=== PATIENT | male | born 1960 | race African-American/Black ===

== ENCOUNTER 2019-12-02 19:46 | Inpatient (IN) | payer OTHER ==
[2019-12-02] MEDS ORDERED: NORMAL SALINE 1000 ML 1,000 ML IV ONE ×2 (19:59)
[2019-12-02] MEDS ORDERED: GENTAMICIN SULFATE 0.3% OPH SOLN 5 ML OU ONE (20:03)
--- NOTE | 2019-12-02 20:09 | ER Document Report ---
Entered by MICHELLE FERNANDEZ SCRIBE 12/02/191999 Acting as scribe for:PHILLIP SANDERS, DO ED General - General Mode of Arrival: Medic <KATIE HUERTA - Last Filed: 12/03/19 02:23> - General Information source: Patient <PHILLIP SANDERS - Last Filed: 12/03/19 14:24> - General Stated Complaint: POSSIBLE STROKE Time Seen by Provider: 12/02/19 19:56 Notes: This 59-year-old Left handed male presents to the emergency department via EMS with stroke-like symptoms. EMS reports that patient lives alone and was found by family laying in the prone position with bowel and urinary incontinence. Last known well was when family saw patient 2 days ago. EMS noted left-sided weakness, slurred speech and febrile with a temperature of 100.9. Patient reports that he fell two days ago and denies having any pain. Patient says that it is "hard to see". (PHILLIP SANDERS) - Related Data Allergies/Adverse Reactions: No Known Allergies Allergy (Verified 12/02/19 19:59) Past Medical History - General Information source: Patient Cannot obtain history due to: Unstable vital signs - Social History Smoking Status: Unknown if Ever Smoked Family History: Reviewed & Not Pertinent - Past Medical History Cardiac Medical History: Reports: Hx Hypertension Pulmonary Medical History: Reports: Hx Asthma - Immunizations Hx Diphtheria, Pertussis, Tetanus Vaccination: No <PHILLIP SANDERS - Last Filed: 12/03/19 14:24> Review of Systems - Review of Systems -: Yes ROS unobtainable due to patient's medical condition <PHILLIP SANDERS - Last Filed: 12/03/19 14:24> Physical Exam <KATIE HUERTA - Last Filed: 12/03/19 02:23> - General General appearance: Other - Pt is quiet, slow to respond. Appears unwell. - HEENT Head: Normocephalic, Atraumatic Eyes: Other - mucopurulent discharge from both eyes. EOMI Conjunctiva: Purulent discharge - Respiratory Respiratory status: No respiratory distress Breath sounds: Normal Chest palpation: Other - left lower chest 1st/ 2nd degree type total body surface < 5 % - Cardiovascular Rhythm: Regular Heart sounds: Normal auscultation - Abdominal Inspection: Normal Distension: No distension Bowel sounds: Normal Tenderness: Tender - Luq small area of redness consistent with laying on floor for 2 days. - Extremities General upper extremity: Nontender, Normal color. No: Edema General lower extremity: Nontender, Normal color. No: Edema, Vilma's sign - Neurological Neuro grossly intact: Yes Cognition: Normal Orientation: AAOx4 Saman Coma Scale Eye Opening: Spontaneous Saman Coma Scale Verbal: Oriented Saman Coma Scale Motor: Obeys Commands Saman Coma Scale Total: 15 Speech: Normal Motor strength normal: LUE, RUE, LLE, RLE Sensory: Normal - Psychological Associated symptoms: Normal mood - Skin Skin Temperature: Warm Skin Moisture: Dry Skin Color: Other - Holguin as noted previously <PHILLIP SANDERS P - Last Filed: 12/03/19 14:24> - Vital signs Vitals: Pulse Ox 97 12/02/19 19:56 - Notes Notes: PHYSICAL EXAMINATION: Physical Exam: General: Well-nourished well-developed 59-year-old man in no acute distress HEENT: NC/AT, pupils equal round and reactive to light, patient is unable to track to the left, unable to give me a accurate identification of my hand on the left side. Lips are dry with some emaciation of the lower lip, an area of blistering noted left chin area clear, oropharynx clear, airway patent Neck: supple, no adenopathy, no masses. Good range of motion Lungs: clear, no wheezing, no rales no rhonchi CVS: Regular rate and rhythm no murmur gallop or rub Abdomen: Soft, active, nontender, no masses, no hepatosplenomegaly Ext: No edema, clubbing or cyanosis. Neuro: Alert and responsive, spontaneous movement right side, no movement on the left, flaccid left lower and left upper extremity. Speech dysarthric able to answer yes and no to some questions, + left-sided neglect, + left field cut, meenakshi ble to cooperate with cerebellar testing. Decreased sensation left side Skin: + Area of superficial burn on the left anterior chest upper abdomen, mild blisters and peeling of skin (KATIE HUERTA) Physical Exam: General: Alert. HEENT: Atraumatic. PERRL. Extraocular movements intact. Oropharynx clear. Lips are dry and macerated. Neck: Supple. Non-tender. Respiratory: No respiratory distress. Clear and equal breath sounds bilaterally. Cardiovascular: Regular rate and rhythm. Abdominal: Normal Inspection. Non-tender. No distension. Normal Bowel Sounds. Back: No gross abnormalities. Extremities: Completely flaccid on LLE and LUQ. Lower extremities: No edema. Neurological: Normal cognition. AAOx4. Normal speech. Psychological: Normal affect. Normal Mood. Skin: Warm. Dry. Normal color. Skin breaks consistent with first and second d egree holguin on LUQ abdomen and lower left costal margin. (PHILLIP SANDERS) Course - Laboratory Result Diagrams: 12/02/19 19:52 12/02/19 19:52 - Diagnostic Test Radiology reviewed: Image reviewed, Reports reviewed - Chest x-ray: + cardiomegaly, no infiltrate CT head: No acute hemorrhage MRI head: Multiple areas of patchy ischemic infarction, right middle cerebral artery watershed distribution between the right MCA and CONE TRUCKER, acute stroke. MRA: Probable occlusion of the right middle cerebral artery at the mid M1 segment. - EKG Interpretation by Sd EKG shows normal: Sinus rhythm - Normal sinus rhythm rate of 76, multiple atrial premature contractions, left atrial abnormality, right bundle branch block, no prior comparative EKG. <KATIE HUERTA - Last Filed: 12/03/19 02:23> - Laboratory Result Diagrams: 12/02/19 19:52 12/02/19 19:52 - Diagnostic Test Radiology reviewed: Image reviewed, Reports reviewed - EKG Interpretation by Sd EKG shows normal: Sinus rhythm Rate: Normal Rhythm: NSR - NSR Nl [place] RBBB Repol Ab no st elevation or depression my interpretation. <PHILLIP SANDERS - Last Filed: 12/03/19 14:24> - Re-evaluation Re-evalutation: 12/02/19 22:53 I have assumed the care of this patient from Dr. Sanders, apparently acute CVA occurring greater than 48 hours prior to arrival to the emergency department NIHSS 11 left-sided weakness and dysarthria. Given the latency of his event patient is not a candidate for TPA. MRI/MRA is being performed will await the findings for disposition. Patient has rhabdomyolysis secondary to being on the floor at home for the past 2 days. 12/03/19 00:09 MRI reveals multiple areas of patchy ischemia, infarct right middle cerebral artery watershed distribution between right MCA and CONE TRUCKER, acute stroke the MRA r evealed probable occlusion of the right middle cerebral artery at the mid M1 segment. I discussed these findings and the patient clinical presentation and need to be hospitalized with the hospitalist, . He will admit the patient to the hospital for further evaluation and treatment. (KATIE HUERTA) 12/02/19 21:40 MDM Unfortunate 59 year old male with dense left sided hemiparesis arrives with acute cva from home via EMS. Fell on Sunday night he tells me. No pain. NIHSS 11 for me for left side weakness and dysarhria. 12/03/19 14:15 Addendum Pt seen and examined by me prior to turnover to Dr. Huerta. Pt has symptoms consistent with R MCA acute CVA and unfortunately onset was Sunday - 2 days prior to his presentation. While TPA was considered, he certainly is not a candidate for TPA due to the distant onset of this cva. The staff was reported to me to be having difficulty with the correct catheter size for CTA to be done and with MRI here and available decision was made to have MRA done. (PHILLIP SANDERS) - Vital Signs Vital signs: Temp Pulse Resp BP Pulse Ox 98.0 F 69 16 142/83 H 96 12/03/19 07:31 12/03/19 07:31 12/03/19 07:31 12/03/19 07:31 12/03/19 07:31 - Laboratory Laboratory results interpreted by me: 12/02/19 12/02/19 12/02/19 19:52 19:52 19:52 WBC 13.2 H RBC 4.28 L MCV 103 H MCH 35.1 H Lymph % (Auto) 6.6 L Absolute Neuts (auto) 11.3 H Seg Neutrophils % 85.9 H BUN 41 H Glucose 134 H Magnesium 3.2 H Total Bilirubin 3.6 H Direct Bilirubin 1.5 H AST 75 H Creatine Kinase 1586 H CK-MB (CK-2) 9.25 H Urine Protein Urine Blood Urine Urobilinogen 12/02/19 23:36 WBC RBC MCV MCH Lymph % (Auto) Absolute Neuts (auto) Seg Neutrophils % BUN Glucose Magnesium Total Bilirubin Direct Bilirubin AST Creatine Kinase CK-MB (CK-2) Urine Protein 100 H Urine Blood MODERATE H Urine Urobilinogen 4.0 H Critical Care Note - Critical Care Note Total time excluding time spent on procedures (mins): 30 <PHILLIP SANDERS - Last Filed: 12/03/19 14:24> - Critical Care Note Comments: Exam, reexamined and review of available studies and pt turned over to Dr. Huerta. (PHILLIP SANDERS) Discharge - Discharge Admitting Provider: Miguel (Hospitalist) Unit Admitted: IMCU <KATIE HUERTA - Last Filed: 12/03/19 02:23> <PHILLIP SANDERS - Last Filed: 12/03/19 14:24> - Discharge Clinical Impression: Elevated CPK, Elevated troponin I level, Left hemiplegia, Rhabdomyolysis, Hypertension Stroke Qualifiers: CVA mechanism: thrombosis Precerebral and cerebral artery: middle cerebral artery Laterality of affected vessel: right Qualified Code(s): I63.311 - Cerebral infarction due to thrombosis of right middle cerebral artery Condition: Fair Disposition: ADMITTED INPATIENT I personally performed the services described in the documentation, reviewed and edited the documentation which was dictated to the scribe in my presence, and it accurately records my words and actions.
[2019-12-02 20:31] LABS: ALKALINE PHOSPHATASE 83 U/L (38-126); ANION GAP 7 (5-19); ASPARTATE AMINO TRANSFERASE 75 U/L (17-59); BILIRUBIN,DIRECT 1.5 mg/dL (0.0-0.4); BILIRUBIN,TOTAL 3.6 mg/dL (0.2-1.3); BLOOD UREA NITROGEN 41 mg/dL (7-20); CARBON DIOXIDE 28 mmol/L (22-30); CHLORIDE 107 mmol/L (98-107); CREATINE KINASE 1586 U/L (55-170); GLUCOSE 134 mg/dL (75-110); POTASSIUM 4.1 mmol/L (3.6-5.0); TOTAL PROTEIN 7.8 g/dL (6.3-8.2)
[2019-12-02 20:41] LABS: CREATINE KINASE MB 9.25 ng/mL (<4.55)
--- NOTE | 2019-12-02 20:41 | RADIOLOGY REPORT (SQ) ---
CT HEAD WITHOUT IV CONTRAST CLINICAL STATEMENT: htn TECHNIQUE: Axial CT images from skull base to vertex without IV contrast. This exam was performed according to our departmental dose optimization program, and includes the following measures where applicable: automated exposure control, adjustment of the mAs and/or kVp according to patient size and/or exam, and an iterative reconstruction algorithm. COMPARISON: None. FINDINGS: Low density is present in the right basal ganglion suggesting an evolving infarct. In addition there is low density in the medial right temporal lobe in the subcortical white matter. No hemorrhage. No midline shift. No abnormal extra-axial fluid collections. Ventricles and basilar cisterns are patent. Calvaria: The skull base and calvaria demonstrate no abnormality. Paranasal sinuses: Visualized portions of the orbits and paranasal sinuses are unremarkable. skull base: Unremarkable IMPRESSION: Evolving infarct in the right basal ganglion with possible other area in the right medial temporal lobe. No hemorrhage. If clinically indicated this could be further assessed with brain MRI with diffusion-weighted imaging.
[2019-12-02 20:49] LABS: TROPONIN I 0.043 ng/mL
--- NOTE | 2019-12-02 20:58 | RADIOLOGY REPORT (SQ) ---
EXAM DESCRIPTION: XR CHEST 1 VIEW COMPLETED DATE/TME: 12/02/2019 19:57 CLINICAL HISTORY: 59 years Male htn COMPARISON: None. FINDINGS: Heart is mildly prominent. Tortuous aorta. No acute consolidation or edema. No pleural fluid or pneumothorax. IMPRESSION: Mild cardiac enlargement No evidence of acute process
[2019-12-02 22:49] LABS: ABSOLUTE LYMPHOCYTES (AUTO) 0.9 10^3/uL (0.5-4.7); ABSOLUTE MONOCYTES (AUTO) 0.9 10^3/uL (0.1-1.4); ABSOLUTE NEUT (AUTO) 11.3 10^3/uL (1.7-8.2); BASOPHILS % (AUTO) 0.3 % (0-2); HEMATOCRIT 43.9 % (37.9-51.0); LYMPHOCYTES % (AUTO) 6.6 % (13-45); MEAN CORPUSCULAR HEMOGLOBIN 35.1 pg (27.0-33.4); MEAN CORPUSCULAR HGB CONC 34.2 g/dL (32.0-36.0); MEAN CORPUSCULAR VOLUME 103 fl (80-97); MONOCYTES % (AUTO) 7.2 % (3-13); PLATELET COUNT 157 10^3/uL (150-450); RED BLOOD COUNT 4.28 10^6/uL (4.35-5.55); RED CELL DISTRIBUTION WIDTH 13.2 % (11.5-14.0); SEGMENTED NEUTROPHILS % (AUTO) 85.9 % (42-78); TOTAL CELLS COUNTED % (AUTO) 100 %; WHITE BLOOD COUNT 13.2 10^3/uL (4.0-10.5)
--- NOTE | 2019-12-02 23:07 | RADIOLOGY REPORT (SQ) ---
EXAM DESCRIPTION: MRI of the brain without gadolinium CLINICAL HISTORY: 59 years Male; cva TECHNIQUE: Routine noncontrast MRI brain protocol COMPARISON: Unenhanced CT scan of the brain obtained earlier in the day FINDINGS: Diffusion: Multiple areas of restricted diffusion are seen involving the castellano matter, subcortical white matter of the right parietal and temporal lobe. A more confluent focused area of abnormal signal is seen in the basal ganglion extending up into the caudate. These areas demonstrate decreased signal on ADC mapping indicating acute areas of infarction. This is predominantly in the distribution of the right middle cerebral artery but also in the watershed distribution between the right middle cerebral and posterior cerebral arteries. Brain: There is increased signal on FLAIR images that correlates with the area of acute ischemia/infarction. No mass lesions are noted. No midline shift. No abnormal extra-axial fluid collections. Ventricles and basilar cisterns are patent. Skull: Calvarial marrow is normal. Orbits and paranasal sinuses: Paranasal sinuses and mastoid air cells are clear. Visualized portions of the orbits are normal. Vessels: Normal flow-voids are seen in the major intracranial arteries. IMPRESSION: Multiple areas of patchy ischemia/infarction in the distribution of the right middle cerebral artery as well as in the watershed distribution between the right MCA and DOWNSTAIRS MAID. Findings are consistent with acute stroke.
--- NOTE | 2019-12-02 23:11 | RADIOLOGY REPORT (SQ) ---
EXAM DESCRIPTION: MRA of the brain/eek of [place]obb[place] CLINICAL HISTORY: 59 years Male; cva TECHNIQUE: 3-D TOF MRA head without contrast. MIP reconstructions were performed. Stenosis measurements performed using NASCET criteria. COMPARISON: MRI of the brain obtained at the same time. FINDINGS: Overall quality of the exam is diminished secondary to extensive patient motion. The internal carotid arteries and basilar artery appear patent. Anterior cerebral arteries are grossly visible. Posterior cerebral arteries are grossly visible. The anterior and posterior communicating arteries are identified. On the mid images there overall appears to be decreased flow in the right middle cerebral artery at the mid M1 segment. This is suggestive of occlusion of the right middle cerebral artery IMPRESSION: Limited examination demonstrating probable occlusion of the right middle cerebral artery at the mid M1 segment.
--- NOTE | 2019-12-02 23:28 | RADIOLOGY REPORT (SQ) ---
EXAM DESCRIPTION: Bilateral carotid duplex exam. CLINICAL HISTORY: 59 years Male; cva probable right MCA occlusion. TECHNIQUE: Grayscale and Doppler (color and pulse) ultrasound of bilateral carotid arteries and the vertebral arteries was performed. Stenosis assessment based on Carotid Artery Stenosis: Vega-Scale and Doppler US DiagnosisSociety of Radiologists in Ultrasound Consensus Conference; Radiology, Jun 2003, Vol. 229:340-346 COMPARISON: None. FINDINGS: All velocities in cm/sec. Right carotid: CCA PSV: 123 cm/s Proximal ICA velocities: 33.3 cm/s (Normal < 124/40) Proximal ICA EDV: 10.7 cm/s Distal ICA PSV: 47.5 cm/s ICA/CCA PSV ratio: 0.4 (Normal < 2.0) ECA: 75.5 cm/s Right vertebral: Antegrade flow Comment: Heart rate is irregular during the exam. Minimal plaque is seen in the bulb. Visually there is no stenosis. Spectral Doppler waveforms are within normal limits. Left carotid: CCA PSV: 42.4 cm/s ICA velocities: 22.2 cm/s(Normal < 124/40) Proximal ICA EDV: 11.2 cm/s Distal ICA PSV: 23.1 cm/s ICA/CCA PSV ratio: (Normal < 2.0) ECA: 80.3 cm/s Left vertebral: Antegrade flow Comment: Heart rate is irregular throughout the examination. Minimal plaque in the carotid bulb with intimal thickening. Visually there is no stenosis. IMPRESSION: 1. Irregular heart rate throughout the examination. 2. Less than 50% stenosis of the internal carotid arteries bilaterally with minimal plaque seen bilaterally.
[2019-12-02 23:52] LABS: APPEARANCE,URINE SLIGHTLY-CLOUDY; BILIRUBIN,URINE NEGATIVE (NEGATIVE); COLOR,URINE AMBER; GLUCOSE, URINE NEGATIVE (NEGATIVE); KETONES,URINE NEGATIVE (NEGATIVE); LEUKOCYTE ESTERASE,URINE NEGATIVE (NEGATIVE); NITRITE,URINE NEGATIVE (NEGATIVE); PROTEIN,URINE 100 mg/dL (NEGATIVE); URINE SPECIFIC GRAVITY 1.028
[2019-12-03] MEDS ORDERED: LORAZEPAM INJ 2 MG/1 ML VIAL IV PRN (00:43)
[2019-12-03] MEDS ORDERED: ACETAMINOPHEN 650 MG SUPP.RECT PR PRN (00:43)
[2019-12-03] MEDS ORDERED: METOPROLOL TARTRATE PF/INJ 5 MG/5 ML SDV IV PRN (00:43)
[2019-12-03] MEDS ORDERED: LEVALBUTEROL HCL NEB 0.63 MG/3 ML AMPUL NEB PRN (00:43)
[2019-12-03] MEDS ORDERED: PROMETHAZINE HCL INJ 25 MG/1 ML VIAL IV PRN (00:43)
--- NOTE | 2019-12-03 02:24 | PDOC H&P ---
History of Present Illness Admission Date/PCP: 12/02/2019 23:59 DOE DILLARD MD Patient complains of: Left-sided weakness History of Present Illness: STORM TERAN is a 59 year old male who presented to the emergency room with left-sided weakness of uncertain duration. The patient lives alone, but was found by family members lying on his floor in a prone position in a pool of urine and fecal matter. The family members last saw him in his usual state of wellbeing 2 days prior to discovering him today. The patient is unable to speak and cannot provide meaningful historical input into his medical record. No family members noted he had severely slurred speech when he attempted to speak and seemed to be unable to move his left side. Family members say he denies pain but complains that, "it is hard to see". In the emergency room patient was found to be severely dysarthric and was noted to have a right middle cerebral artery occlusion on his MRI. Patient was subsequently admitted to hospital for further evaluation and treatment. Past Medical History Past Medical History: Patient is unable to provide historical information therefore past medical history, past surgical history, social history and family medical history are obtained from the best available reliable source. Cardiac Medical History: Reports: Coronary Artery Disease - Angina, Hypertension Denies: Atrial Fibrillation, Myocardial Infarction, Hyperlipidema Pulmonary Medical History: Reports: Asthma, Sleep Apnea Denies: Bronchitis, Chronic Obstructive Pulmonary Disease (COPD), Pneumonia EENT Medical History: Reports: Eyes - Wears prescription lenses Denies: Cataracts, Ears - Hearing aids Neurological Medical History: Denies: Hemorrhagic CVA, Ischemic CVA, Seizures Endocrine Medical History: Reports: Obesity Denies: Diabetes Mellitus Type 1, Diabetes Mellitus Type 2, Hyperthyroidism, Hypothyroidism Renal/ Medical History: Denies: Chronic Kidney Disease, Nephrolithiasis Malignancy Medical History: Reports: None GI Medical History: Reports: Other - Colon polyps, diverticulosis, internal hemorrhoids Denies: Cirrhosis, Hepatitis Musculoskeltal Medical History: Denies: Arthritis, Gout Skin Medical History: Denies: Eczema, Psoriasis Psychiatric Medical History: Denies: Alcohol Dependency, Substance Abuse, Tobacco Dependency Traumatic Medical History: Reports: None Hematology: Denies: Anemia, Bleeding Tendencies Infectious Medical History: Reports: None Past Surgical History Past Surgical History: Patient is unable to provide historical information therefore past medical history, past surgical history, social history and family medical history are obtained from the best available reliable source. Past Surgical History: Reports: Hip Replacement, Other - Colonoscopy with biopsy of colon polyps Social History Information Source: Emergency Med Personnel, [facility] Records Lives with: Alone Smoking Status: Never Smoker Electronic Cigarette use?: No Frequency of Alcohol Use: None Hx Recreational Drug Use: No Drugs: None Hx Prescription Drug Abuse: No Past Social History Note: Patient is unable to provide historical information therefore past medical history, past surgical history, social history and family medical history are obtained from the best available reliable source. - Advance Directive Resuscitation Status: Full Code Surrogate healthcare decision maker:: Soy Teran Family History Family History: Hypertension. denies: CAD, DM, Malignancy Family History: Patient is unable to provide historical information therefore past medical history, past surgical history, social history and family medical history are obtained from the best available reliable source. Parental Family History Reviewed: Yes Children Family History Reviewed: No Sibling(s) Family History Reviewed.: Yes Medication/Allergy Home Medications: Atorvastatin Calcium [Lipitor 80 Mg Tablet] 80 mg PO QHS 10/19/11 Lisinopril [Prinivil] 20 mg PO DAILY 10/19/11 Metoprolol Succinate [Toprol-Xl 50 Mg Tab.Sr] 50 mg PO DAILY 10/19/11 Nisoldipine [Sular] 20 mg PO DAILY 10/19/11 [place]-3 Acid Ethyl Esters [Lovaza 1 Gm Capsule] 1 gm PO DAILY 10/19/11 Allergies/Adverse Reactions: No Known Allergies Allergy (Verified 12/02/19 19:59) Review of Systems ROS unobtainable: Other - Patient with severe dysarthria status post CVA, unable to communicate Physical Exam Vital Signs: Temp Pulse Resp BP Pulse Ox 75 18 132/86 H 95 12/02/19 20:08 12/02/19 20:08 12/02/19 20:08 12/02/19 20:08 Intake & Output 11/30/19 12/01/19 12/02/19 23:59 23:59 23:59 Intake Total 1000 Balance 1000 Weight 104.326 kg General appearance: PRESENT: no acute distress, cooperative, obese Head exam: PRESENT: atraumatic, normocephalic Eye exam: ABSENT: conjunctival injection, scleral icterus Ear exam: PRESENT: normal external ear exam. ABSENT: bleeding, drainage Mouth exam: PRESENT: dry mucosa, neck supple. ABSENT: tongue midline Neck exam: ABSENT: thyromegaly, tracheal deviation Respiratory exam: PRESENT: clear to auscultation elodia, symmetrical, unlabored Cardiovascular exam: PRESENT: RRR. ABSENT: clicks, gallop, rubs Pulses: PRESENT: normal radial pulses, normal dorsalis pedis pul Vascular exam: PRESENT: normal capillary refill. ABSENT: pallor GI/Abdominal exam: PRESENT: normal bowel sounds, soft Rectal exam: PRESENT: deferred Extremities exam: PRESENT: other - Flaccid hemiparesis left upper and lower extremities. ABSENT: joint swelling, pedal edema Musculoskeletal exam: PRESENT: other - Flaccid hemiparesis left side. ABSENT: deformity, dislocation Neurological exam: PRESENT: awake, motor sensory deficit - Dense left hemiparesis of face, upper and lower extremities, other - Severe dysarthria. ABSENT: CN II-XII grossly intact Psychiatric exam: PRESENT: depressed, flat affect Skin exam: PRESENT: dry, intact, warm. ABSENT: jaundice, rash, urticaria Results Laboratory Results: 12/02/19 19:52 12/02/19 19:52 12/02/19 12/02/19 12/02/19 19:52 19:52 19:52 WBC 13.2 H RBC 4.28 L Hgb 15.0 Hct 43.9 MCV 103 H MCH 35.1 H MCHC 34.2 RDW 13.2 Plt Count 157 Seg Neutrophils % 85.9 H Sodium 142.3 Potassium 4.1 Chloride 107 Carbon Dioxide 28 Anion Gap 7 BUN 41 H Creatinine 1.17 Est GFR ( Amer) > 60 Glucose 134 H Calcium 9.0 Magnesium 3.2 H Total Bilirubin 3.6 H AST 75 H Alkaline Phosphatase 83 Total Protein 7.8 Albumin 4.0 TSH 1.45 12/02/19 12/02/19 19:52 19:52 Creatine Kinase 1586 H CK-MB (CK-2) 9.25 H Troponin I 0.043 Impressions: Brain MRI with MRA 12/02/19 00:00 IMPRESSION: Limited examination demonstrating probable occlusion of the right middle cerebral artery at the mid M1 segment. 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 Findings are consistent with acute stroke. Chest X-Ray 12/02/19 19:57 IMPRESSION: Mild cardiac enlargement No evidence of acute process Head CT 12/02/19 19:57 IMPRESSION: Evolving infarct in the right basal ganglion with possible other area in the right medial temporal lobe. No hemorrhage. If clinically indicated this could be further assessed with brain MRI with diffusion-weighted imaging. Carotid Doppler Study 12/02/19 21:34 IMPRESSION: 1. Irregular heart rate throughout the examination. 2. Less than 50% stenosis of the internal carotid arteries bilaterally with minimal plaque seen bilaterally. Assessment and Plan - Diagnosis (1) Acute ischemic right middle cerebral artery (MCA) stroke Is this a current diagnosis for this admission?: Yes (2) Rhabdomyolysis Qualifiers: Rhabdomyolysis type: non-traumatic Qualified Code(s): M62.82 - Rhabdomyolysis Is this a current diagnosis for this admission?: Yes (3) Elevated troponin I level Is this a current diagnosis for this admission?: Yes (4) Hypertension Qualifiers: Hypertension type: essential hypertension Qualified Code(s): I10 - Essential (primary) hypertension Is this a current diagnosis for this admission?: Yes (5) Sleep apnea in adult Is this a current diagnosis for this admission?: Yes - Plan Summary Summary: Patient is admitted to [facility] per stroke protocol were he will receive routine supportive and symptomatic cares. Patient will receive care as per the stroke protocol including a carotid Doppler study. Ativan 1 mg IV every 4 hours will be used as needed to relieve the patient's anxiety or restlessness. The stroke team will be consulted as usual per stroke protocol. Patient's home medications will be restarted as appropriate once his medical reconciliation can be completed. Discharge planning will be involved in aiding the placement of the patient in post hospital rehabilitation. CBCs, metabolic profiles, magnesium levels, troponin I and CPK levels will be will be followed as appropriate. Patient will be n.p.o. initially until he has been evaluated by the speech therapist. - Time Time Spent with patient: Less than 15 minutes Medications reviewed and adjusted accordingly: Yes Anticipated discharge: SNF, Acute Rehab Within: when bed available - Inpatient Certification Based on my medical assessment, after consideration of the patient's comorbidities, presenting symptoms, or acuity I expect that the services needed warrant INPATIENT care.: Yes I certify that my determination is in accordance with my understanding of Medicare's requirements for reasonable and necessary INPATIENT services [42 CFR 412.3e].: Yes Medical Necessity: Need Close Monitoring Due to Risk of Patient Decompensation, Need For IV Fluids, Need For Continuous Telemetry Monitoring, Need for Neurological Checks, Risk of Complication if Not Cared For in Hospital
[2019-12-03] MEDS: DEXTROSE 5%-LACTATED RINGERS 1,000 ML IV PRN ×2 (02:54→13:58)
[2019-12-03] MEDS: HEPARIN SOD (PORCINE) 5,000 UNIT/ML 1 ML VIAL SUBCUT SCH ×3 (06:22→21:25)
--- NOTE | 2019-12-03 07:48 | EKG REPORT ---
SEVERITY:- ABNORMAL ECG - SINUS RHYTHM MULTIPLE ATRIAL PREMATURE COMPLEXES PROBABLE LEFT ATRIAL ABNORMALITY RIGHT BUNDLE BRANCH BLOCK : Confirmed by: Hugo Balderrama MD 03-Dec-2019 07:47:15
[2019-12-03] MEDS: FAMOTIDINE INJ/PF 20 MG/2 ML SDV IV SCH ×2 (09:06→21:26)
[2019-12-03] MEDS ORDERED: VANCOMYCIN HCL INJ 1000 MG VIAL IV SCH (13:45)
[2019-12-03] MEDS ORDERED: CEFEPIME 2 GM/D5W RTU 2 GM/50 ML RTUPB IV SCH (14:00)
[2019-12-03] MEDS ORDERED: CEFAZOLIN SODIUM 2 GM in DEXTROSE 5%-WATER 100 ML IV SCH (15:00)
[2019-12-03] MEDS ORDERED: ASPIRIN 300 MG SUPP, RECTAL PR ONE (15:00)
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
[2019-12-03] MEDS: CEFEPIME HCL 2 GM in DEXTROSE 5%-WATER 50 ML IV SCH ×2 (17:02→21:26)
[2019-12-03] MEDS: VANCOMYCIN HCL 1,250 MG in DEXTROSE 5%-WATER 250 ML IV SCH (17:03)
[2019-12-04] MEDS: DEXTROSE 5%-LACTATED RINGERS 1,000 ML IV PRN ×2 (02:09→15:38)
[2019-12-04 04:36] LABS: HEMATOCRIT 42.9 % (37.9-51.0); HEMOGLOBIN 14.5 g/dL (13.5-17.0); MEAN CORPUSCULAR HEMOGLOBIN 35.1 pg (27.0-33.4); MEAN CORPUSCULAR HGB CONC 33.8 g/dL (32.0-36.0); MEAN CORPUSCULAR VOLUME 104 fl (80-97); PLATELET COUNT 143 10^3/uL (150-450); RED BLOOD COUNT 4.13 10^6/uL (4.35-5.55); RED CELL DISTRIBUTION WIDTH 13.3 % (11.5-14.0); WHITE BLOOD COUNT 9.1 10^3/uL (4.0-10.5)
[2019-12-04 04:58] LABS: BLOOD UREA NITROGEN 33 mg/dL (7-20); CALCIUM 8.5 mg/dL (8.4-10.2); CHOLESTEROL 263.71 mg/dL (0-200); CREATINE KINASE 1040 U/L (55-170); GLUCOSE 111 mg/dL (75-110); POTASSIUM 4.1 mmol/L (3.6-5.0); TRIGLYCERIDES 149 mg/dL (<150)
[2019-12-04 05:03] LABS: CARBON DIOXIDE 32 mmol/L (22-30); CHLORIDE 111 mmol/L (98-107)
[2019-12-04 05:09] LABS: DIRECT LDL 184 mg/dL (<100)
[2019-12-04 05:19] LABS: ANION GAP 4 (5-19)
[2019-12-04] MEDS: VANCOMYCIN HCL 1,250 MG in DEXTROSE 5%-WATER 250 ML IV SCH ×2 (05:23→19:09)
[2019-12-04] MEDS: CEFEPIME HCL 2 GM in DEXTROSE 5%-WATER 50 ML IV SCH ×3 (05:24→22:48)
[2019-12-04] MEDS: HEPARIN SOD (PORCINE) 5,000 UNIT/ML 1 ML VIAL SUBCUT SCH ×3 (05:33→22:47)
[2019-12-04 08:19] LABS: ABSOLUTE LYMPHOCYTES# (MANUAL) 1.2 10^3/uL (0.5-4.7); ABSOLUTE MONOCYTES # (MANUAL) 0.7 10^3/uL (0.1-1.4); BASOPHILS % (MANUAL) 0 % (0-2); EOSINOPHILS % (MANUAL) 3 % (0-6); LYMPHOCYTES % (MANUAL) 13 % (13-45); MONOCYTES % (MANUAL) 8 % (3-13); SEGMENTED NEUTROPHILS % (MAN) 76 % (42-78); TOTAL CELLS COUNTED 100
[2019-12-04 08:20] LABS: PLATELET COMMENT ADEQUATE
--- NOTE | 2019-12-04 10:24 | XCELERA REPORT ---
[address] [address] Transthoracic Echocardiogram Report Name: STORM GAINES Age: 59 yrs Gender: Male : 1960 Patient Status: Inpatient Patient Location: [address] [place], [place] [id number] Study Date: 12/03/2019 11:35 AM History: CHF Height: 67 in Weight: 247 lb BSA: 2.2 m2 Procedure: A complete two-dimensional transthoracic echocardiogram was performed (2D, M-mode, spectral and color flow Doppler). The study was technically difficult with many images being suboptimal in quality. Reason For Study: CHF Ordering Physician: REBEKA CAMPOS Performed By: Mya Shannon Interpretation Summary Left ventricular systolic function is normal. The Ejection Fraction estimate is 55-60% The right ventricle is normal in size and function. There is a mild amount of mitral regurgitation There is no aortic valve stenosis There is a trace amount of tricuspid regurgitation There is no pericardial effusion. MMode/2D Measurements & Calculations RVDd: 2.8 cm LVIDd: 4.1 cm FS: 29.8 % Ao root diam: 3.2 cm IVSd: 1.6 cm LVIDs: 2.9 cm EDV(Teich): 72.5 ml Ao root area: 8.2 cm2 LVPWd: 1.6 cm ESV(Teich): 30.9 ml LA dimension: 2.4 cm EF(Teich): 57.4 % Doppler Measurements & Calculations MV E max reinaldo: MV P1/2t max reinaldo: Ao V2 max: AI max reinaldo: 73.1 cm/sec 115.6 cm/sec 190.0 cm/sec 435.6 cm/sec MV A max reinaldo: MV P1/2t: 49.1 msec Ao max PG: AI max P.6 cm/sec MVA(P1/2t): 4.5 cm2 14.4 mmHg 76.0 mmHg MV E/A: 1.0 MV dec slope: AI dec slope: 184.1 cm/sec2 689.0 cm/sec2 AI P1/2t: MV dec time: 0.20 sec 693.1 msec LV V1 max PG: PA V2 max: PI end-d reinaldo: AV P1/2t-pr_phl: 4.5 mmHg 99.7 cm/sec 97.7 cm/sec 709.1 msec LV V1 max: PA max P.0 mmHg 105.6 cm/sec MV P1/2t-pr_phl: 49.1 msec Left Ventricle The left ventricle is normal in size. There is severe concentric left ventricular hypertrophy. Left ventricular systolic function is normal. The Ejection Fraction estimate is 55-60%. Doppler measurements suggest pseudonormalized left ventricular relaxation, which is associated with grade II/IV or mild to moderate diastolic dysfunction. Regional wall motion abnormalities cannot be excluded due to limited visualization. Right Ventricle The right ventricle is grossly normal size. The right ventricle is normal in size and function. The right ventricular systolic function is normal. Atria The right atrium is normal. The left atrial size is normal. Mitral Valve The mitral valve is grossly normal. There is a mild amount of mitral regurgitation. Aortic Valve The aortic valve is moderately calcified. The aortic valve is sclerotic and shows some degree of functional abnormality. The aortic valve is not well visualized secondary to technical limitations. There is no aortic valve stenosis. There is a mild amount of aortic regurgitation. Tricuspid Valve The tricuspid valve is normal in structure and function. There is a trace amount of tricuspid regurgitation. Doppler findings do not suggest pulmonary hypertension. Tricuspid regurgitation jet envelope not well defined to measure RV systolic pressure accurately. Pulmonic Valve The pulmonic valve is not well visualized. There is a trace amount of pulmonic regurgitation. Great Vessels The aortic root is normal size. The inferior vena cava appeared normal and decreased > 50% with respiration (RAP 5-10 mmHg). Effusions There is no pericardial effusion. : REBEKA CAMPOS Anil
[2019-12-04] MEDS: FAMOTIDINE INJ/PF 20 MG/2 ML SDV IV SCH ×2 (11:13→22:48)
[2019-12-04] MEDS: ASPIRIN 300 MG SUPP, RECTAL PR SCH (11:13)
--- NOTE | 2019-12-04 12:46 | PDOC PROGRESS REPORT ---
Subjective Progress Note for:: 12/04/19 Subjective:: Patient seems to be doing better today, more talkative, clear speech, still not opening his eyes when he speaks and he still cannot move the left side of his body. Speech therapy is planning a modified barium swallow tomorrow. He does have a wound on his left upper abdomen that is likely the source of his bacteremia. Suspect he got all manner of bacteria from his stool and urine in this wound and it injured his bloodstream there. Discussed with nurse to apply Silvadene dressings with a each shift change. Patient cannot articulate specific complaints appropriately. Reason For Visit: ACUTE RIGHT MIDDLE CEREBRAL ARTERY CVA Physical Exam Vital Signs: Temp Pulse Resp BP Pulse Ox 97.8 F 69 14 153/84 H 94 12/04/19 07:18 12/04/19 08:03 12/04/19 08:03 12/04/19 08:00 12/04/19 08:03 Intake & Output 12/03/19 12/04/19 12/05/19 06:59 06:59 06:59 Intake Total 1000 2350 300 Output Total 520 1325 Balance 480 1025 300 Weight 112.4 kg 116.8 kg General appearance: PRESENT: no acute distress, well-developed, well-nourished Head exam: PRESENT: atraumatic, normocephalic Eye exam: PRESENT: conjunctiva pink Mouth exam: PRESENT: moist Respiratory exam: PRESENT: clear to auscultation elodia. ABSENT: rales, rhonchi, wheezes Cardiovascular exam: PRESENT: RRR. ABSENT: diastolic murmur, rubs, systolic murmur GI/Abdominal exam: PRESENT: normal bowel sounds, soft, other - Skin tears across upper left abdomen. ABSENT: distended, guarding, mass, organolmegaly, rebound, tenderness Rectal exam: PRESENT: deferred Neurological exam: PRESENT: alert, altered, awake, oriented to person, motor sensory deficit - Hemiparesis of left upper and lower extremity, good strength on the right but difficult to test with absolute specificity due to patient's difficulty understanding and following commands. ABSENT: oriented to place, oriented to time, oriented to situation Psychiatric exam: PRESENT: appropriate affect, normal mood Skin exam: PRESENT: dry, skin tears, warm Results Laboratory Results: 12/04/19 04:11 12/04/19 04:11 12/04/19 12/04/19 12/04/19 04:11 04:11 04:11 WBC 9.1 RBC 4.13 L Hgb 14.5 Hct 42.9 MCV 104 H MCH 35.1 H MCHC 33.8 RDW 13.3 Plt Count 143 L Seg Neutrophils % Not Reportable Sodium 146.8 H Potassium 4.1 Chloride 111 H Carbon Dioxide 32 H Anion Gap 4 L BUN 33 H Creatinine 1.00 Est GFR ( Amer) > 60 Glucose 111 H Calcium 8.5 Magnesium 3.2 H Triglycerides 149 Cholesterol 263.71 H LDL Cholesterol Direct 184 H VLDL Cholesterol 30.0 HDL Cholesterol 40 TSH 2.99 12/02/19 22:52 Blood Blood Culture (PCR) - Final Staphylococcus Species Proteus Species 12/02/19 12/02/19 12/03/19 19:52 19:52 05:36 Creatine Kinase 1586 H CK-MB (CK-2) 9.25 H Troponin I 0.043 0.026 12/03/19 12/03/19 12/04/19 12:13 18:17 04:11 Creatine Kinase 1040 H CK-MB (CK-2) Troponin I 0.018 0.019 Impressions: Brain MRI with MRA 12/02/19 00:00 IMPRESSION: Limited examination demonstrating probable occlusion of the right middle cerebral artery at the mid M1 segment. Head MRI 12/02/19 00:00 IMPRESSION: Multiple areas of patchy ischemia/infarction in the distribution of the right middle cerebral artery as well as in the watershed distribution between the right MCA and MATERIAL MANAGER. Findings are consistent with acute stroke. Chest X-Ray 12/02/19 19:57 IMPRESSION: Mild cardiac enlargement No evidence of acute process Head CT 12/02/19 19:57 IMPRESSION: Evolving infarct in the right basal ganglion with possible other area in the right medial temporal lobe. No hemorrhage. If clinically indicated this could be further assessed with brain MRI with diffusion-weighted imaging. Carotid Doppler Study 12/02/19 21:34 IMPRESSION: 1. Irregular heart rate throughout the examination. 2. Less than 50% stenosis of the internal carotid arteries bilaterally with minimal plaque seen bilaterally. Assessment and Plan - Diagnosis (1) Acute ischemic right middle cerebral artery (MCA) stroke Is this a current diagnosis for this admission?: Yes Plan: Not a TPA candidate, last seen normal greater than 24 hours prior to admission; left upper and lower extremity paralysis with severe dysarthria and somnolence Echocardiogram CT head showed evolving right sided stroke Carotid PVL showed mild disease bilaterally ICA MRA/MRI brain showed probable occlusion of right MCA at the mid M1 segment Aspirin, statin PT/ST/OT Out of the window for permissive hypertension, okay to treat blood pressure with goal 120/80 Poor prognosis overall given large size of occlusion (2) Sepsis Is this a current diagnosis for this admission?: Yes Plan: Unclear source but suspect superficial skin infection across abdomen which was likely contaminated with stool and urine that patient was found lying in for 1 to 2 days Empiric vancomycin/cefepime Blood cultures positive for coag negative methicillin-resistant staph and gram-negative rods IV fluids (3) Bacteremia Is this a current diagnosis for this admission?: Yes Plan: Blood cultures growing GPC and GNR Antibiotics as above (4) Rhabdomyolysis Qualifiers: Rhabdomyolysis type: non-traumatic Qualified Code(s): M62.82 - Rhabdomyo lysis Is this a current diagnosis for this admission?: Yes Plan: Found down at home for undetermined period of time, likely at least 24 hours CPK significantly elevated on admission, trending down IV fluids Trend BMP and monitor creatinine (5) Elevated CPK Is this a current diagnosis for this admission?: Yes (6) Elevated troponin I level Is this a current diagnosis for this admission?: Yes (7) Hypertension Qualifiers: Hypertension type: essential hypertension Qualified Code(s): I10 - Essential (primary) hypertension Is this a current diagnosis for this admission?: Yes (8) Left hemiplegia Is this a current diagnosis for this admission?: Yes (9) Sleep apnea in adult Is this a current diagnosis for this admission?: Yes (10) Stroke Qualifiers: CVA mechanism: thrombosis Precerebral and cerebral artery: middle cerebral artery Laterality of affected vessel: right Qualified Code(s): I63.311 - Cerebral infarction due to thrombosis of right middle cerebral artery Is this a current diagnosis for this admission?: Yes - Plan Summary Summary: Patient is admitted to [facility] per stroke protocol were he will receive routine supportive and symptomatic cares. Patient will receive care as per the stroke protocol including a carotid Doppler study. Ativan 1 mg IV every 4 hours will be used as needed to relieve the patient's anxiety or restlessness. The stroke team will be consulted as usual per stroke protocol. Patient's home medications will be restarted as appropriate once his medical reconciliation can be completed. Discharge planning will be involved in aiding the placement of the patient in post hospital rehabilitation. CBCs, metabolic profiles, magnesium levels, troponin I and CPK levels will be will be followed as appropriate. Patient will be n.p.o. initially until he has been evaluated by the speech therapist. - Time Time Spent with patient: 25-34 minutes Medications reviewed and adjusted accordingly: Yes Anticipated discharge: SNF - Inpatient Certification Medical Necessity: Significant Comorbidiites Make Outpatient Treatment Too Risky, Need Close Monitoring Due to Risk of Patient Decompensation, Need for IV Antibiotics, Risk of Complication if Not Cared For in Hospital, Risk of Diagnosis Which Will Require Inpatient Eval/Care/Monitoring
[2019-12-04] MEDS: SILVER SULFADIAZINE 1% CREAM 400 GM TP SCH ×2 (15:38→22:49)
[2019-12-05] MEDS: CEFEPIME HCL 2 GM in DEXTROSE 5%-WATER 50 ML IV SCH ×3 (05:34→21:17)
[2019-12-05] MEDS: DEXTROSE 5%-LACTATED RINGERS 1,000 ML IV PRN ×2 (05:34→23:28)
[2019-12-05] MEDS: VANCOMYCIN HCL 1,250 MG in DEXTROSE 5%-WATER 250 ML IV SCH ×3 (05:35→21:17)
[2019-12-05] MEDS: HEPARIN SOD (PORCINE) 5,000 UNIT/ML 1 ML VIAL SUBCUT SCH ×3 (05:35→21:17)
[2019-12-05 05:39] LABS: HEMATOCRIT 39.9 % (37.9-51.0); HEMOGLOBIN 13.7 g/dL (13.5-17.0); MEAN CORPUSCULAR HEMOGLOBIN 35.5 pg (27.0-33.4); MEAN CORPUSCULAR HGB CONC 34.3 g/dL (32.0-36.0); MEAN CORPUSCULAR VOLUME 103 fl (80-97); PLATELET COUNT 121 10^3/uL (150-450); RED BLOOD COUNT 3.86 10^6/uL (4.35-5.55); RED CELL DISTRIBUTION WIDTH 13.1 % (11.5-14.0); WHITE BLOOD COUNT 7.4 10^3/uL (4.0-10.5)
[2019-12-05 06:00] LABS: BLOOD UREA NITROGEN 27 mg/dL (7-20); CALCIUM 8.4 mg/dL (8.4-10.2); CARBON DIOXIDE 31 mmol/L (22-30); CREATINE KINASE 600 U/L (55-170); GLUCOSE 107 mg/dL (75-110)
[2019-12-05 06:01] LABS: VANCOMYCIN,TROUGH 6.6 ug/mL (5.0-20.0)
[2019-12-05 06:06] LABS: CHLORIDE 113 mmol/L (98-107)
[2019-12-05 06:10] LABS: ANION GAP 2 (5-19)
--- NOTE | 2019-12-05 09:28 | ST Inp Modified Barium Swallow ---
Medical Diagnosis - Medical Diagnoses Medical Diagnosis Description & ICD-10 Code(s): Acute ischemic right MCA stroke, dysphagia Inpatient [facility] [place] - General Date: 12/05/19 Date of Onset: 12/03/19 - admit date - History -: Medical - per EMR: patient admitted 12/01 with left sided weakness. Patient was found at home face down, unable to speak and unable to move his left side. MRI revealed right MCA occlusion. Prior medical history includes CAD, hypertension, asthma, obesity. Failed 2 nursing swallow screens, 1 due to coughing, and 1 due to decreased alertness. Patient was initially very lethargic and minimally responsive, however, is now trying to talk and able to follow most simple directions. Medications: Medications Reviewed Allergies: No known allergies - Subjective Current Nutritional Means: NPO Current PO Diet: N/A (NPO) Current Symptoms: other - significant weakness following CVA Pain: Patient reports, 0/5 - Objective Assessment: Upright, Left Lateral - Food Trials Food Trials Used: Thin liquids, Pureed, Regular The Patient: fed by ST - Assessment Labial Function: Impaired Lingual Function: Within Functional Limits - Able to adequatel manipulate bolus orally, however, patient needed cues/reminders to continue to chew solids. He was noted to hold regular solids in his mouth after a few chews, required prompting to continue to chew and swallow. Mandibular Function: Within Functional Limits Dentition: Partial Velo-Pharyngeal Function: Unremarkable - Pharyngeal Stage Initiation of Pharyngeal Stage: Delayed - up to 4 second delay seen Decreased Laryngeal Elevation: No Reduced Velo-Pharyngeal Closure: no Reduced Pressure Generation: No Reduced Tongue Base Retraction: Yes Pre-Swallowing Pooling in Valleculae: Significant Pre-Swallowing Pooling in Pyriforms: Significant Reduced Thyro-Hyiod Approximation: No Reduced Epiglottic Excursion: No Reduced Pharyngeal Peristalsis: No Post Swallow Residuals in Valleculae: None Post Swallow Residuals in Pyriforms: None Post Swallow Residuals: tongue-base Pahryngeal Stage Comments: Pharyngeal phase swallow reflex is delayed, otherwise within normal limits. Oral phase of the swallow is limiting. - Impression/Summary Laryngeal Penetration: Yes - flash penetration of thin liquids seen, not consistently. Tracheal Aspiration: no Compensatory Strategies: Recommend use of straws for liquids as patient needs full assistance with feeding, and has difficulty taking from a cup. Risk of Aspiration: Mild Risk Due To: delayed swallow reflex places patient at higher risk of aspiration during the swallow. Patient also demonstrates some oral holding patterns and oral/base of tongue residue after the swallow, which also places the patient at higher risk of aspiration after the swallow. - Recommendations Solid Diet Recommendations: Pureed Liquid Diet Recommendations: Thin Strict Aspitarion Precautions: Yes Dysphagia Therapy with RELOCATION COUNSELOR: Yes Recommended Techniques: Fully Upright During Meal, Check Mouth for Pocketing, Med Crushed in Applesauce Supervision: requires assistance - Time Total Time: 30 Total Timed Minutes: 30
[2019-12-05] MEDS: ASPIRIN 300 MG SUPP, RECTAL PR SCH (09:42)
[2019-12-05] MEDS: FAMOTIDINE INJ/PF 20 MG/2 ML SDV IV SCH ×2 (09:42→21:17)
[2019-12-05] MEDS: SILVER SULFADIAZINE 1% CREAM 400 GM TP SCH ×2 (09:42→21:18)
--- NOTE | 2019-12-05 10:56 | RADIOLOGY REPORT (SQ) ---
EXAM DESCRIPTION: COOKIE SWALLOW IMAGES COMPLETED DATE/TIME: 12/05/2019 8:54 am REASON FOR STUDY: dysphagia following CVA COMPARISON: None. TECHNIQUE: Videofluoroscopic swallowing examination was performed in conjunction with speech patholo gy. Videofluoroscopic imaging was obtained and reviewed and these are the findings: RADIATION DOSE: 2 minutes 30 seconds of fluoroscopy was used. 1 images saved to PACS. LIMITATIONS: None FINDINGS: The patient was brought into the fluoro room and placed upright on a modified barium swall ow chair. The patient was then given multiple consistencies mixed with barium to swallow under live fluoroscopic video guidance. According to the Speech Pathologist there was laryngeal penetration wit h thin liquids. No aspiration seen. IMPRESSION: LARYNGEAL PENETRATION WITHOUT ASPIRATION. PLEASE SEE SPEECH PATHOLOGIST REPORT FOR OTHER FINDINGS AND RECOMMENDATIONS. COMMENT: Quality ID [id number]: Final reports for procedures using fluoroscopy that document radiation exp osure indices, or exposure time and number of fluorographic images (if radiation exposure indices are not available) TECHNICAL DOCUMENTATION: JOB ID: [id number] 2010 [employer]- All Rights Reserved Reading location - IP/workstation name: [email or web address] [id number]
--- NOTE | 2019-12-05 17:33 | PDOC PROGRESS REPORT ---
Subjective Progress Note for:: 12/05/19 Subjective:: Patient is doing a bit better again today. Still talking quite clearly all things considered. Still cannot move the left side of his body or the left side of his face. All of his labs are improving with lower WBC, lower CK, improved magnesium. He even did quite well on his modified barium swallow and was cleared for a pured diet with thin liquids. Reason For Visit: ACUTE RIGHT MIDDLE CEREBRAL ARTERY CVA Physical Exam Vital Signs: Temp Pulse Resp BP Pulse Ox 99.0 F 65 20 154/79 H 94 12/05/19 15:04 12/05/19 15:04 12/05/19 15:04 12/05/19 15:04 12/05/19 15:04 Intake & Output 12/04/19 12/05/19 12/06/19 06:59 06:59 06:59 Intake Total 2350 2700 360 Output Total 1325 1550 275 Balance 1025 1150 85 Weight 116.8 kg 118 kg General appearance: PRESENT: no acute distress, obese Head exam: PRESENT: atraumatic, normocephalic Eye exam: PRESENT: conjunctiva pink Mouth exam: PRESENT: moist Respiratory exam: PRESENT: clear to auscultation elodia. ABSENT: rales, rhonchi, wheezes Cardiovascular exam: PRESENT: RRR. ABSENT: diastolic murmur, rubs, systolic murmur GI/Abdominal exam: PRESENT: normal bowel sounds, soft, other - skin tear on left upper abdomen. ABSENT: distended, guarding, mass, organolmegaly, rebound, tenderness Neurological exam: PRESENT: alert, awake, oriented to person, motor sensory deficit - LUE/LLE and left face hemiparesis. ABSENT: oriented to place, oriented to time, oriented to situation, CN II-XII grossly intact Psychiatric exam: PRESENT: appropriate affect, normal mood Skin exam: PRESENT: dry, warm Results Laboratory Results: 12/05/19 05:28 12/05/19 05:28 12/05/19 12/05/19 05:28 05:28 WBC 7.4 RBC 3.86 L Hgb 13.7 Hct 39.9 MCV 103 H MCH 35.5 H MCHC 34.3 RDW 13.1 Plt Count 121 L Sodium 146.2 H Potassium 4.0 Chloride 113 H Carbon Dioxide 31 H Anion Gap 2 L BUN 27 H Creatinine 0.89 Est GFR ( Amer) > 60 Glucose 107 Calcium 8.4 Magnesium 2.8 H 12/02/19 22:52 Blood Blood Culture (PCR) - Final Staphylococcus Species Proteus Species 12/02/19 12/02/19 12/03/19 19:52 19:52 05:36 Creatine Kinase 1586 H CK-MB (CK-2) 9.25 H Troponin I 0.043 0.026 12/03/19 12/03/19 12/04/19 12:13 18:17 04:11 Creatine Kinase 1040 H CK-MB (CK-2) Troponin I 0.018 0.019 12/05/19 05:28 Creatine Kinase 600 H CK-MB (CK-2) Troponin I Impressions: Brain MRI with MRA 12/02/19 00:00 IMPRESSION: Limited examination demonstrating probable occlusion of the right middle cerebral artery at the mid M1 segment. Head MRI 12/02/19 00:00 IMPRESSION: Multiple areas of patchy ischemia/infarction in the distribution of the right middle cerebral artery as well as in the watershed distribution between the right MCA and HEAD GREENSKEEPER. Findings are consistent with acute stroke. Chest X-Ray 12/02/19 19:57 IMPRESSION: Mild cardiac enlargement No evidence of acute process Head CT 12/02/19 19:57 IMPRESSION: Evolving infarct in the right basal ganglion with possible other area in the right medial temporal lobe. No hemorrhage. If clinically indicated this could be further assessed with brain MRI with diffusion-weighted imaging. Carotid Doppler Study 12/02/19 21:34 IMPRESSION: 1. Irregular heart rate throughout the examination. 2. Less than 50% stenosis of the internal carotid arteries bilaterally with minimal plaque seen bilaterally. Modified Barium Swallow 12/05/19 00:01 IMPRESSION: LARYNGEAL PENETRATION WITHOUT ASPIRATION. PLEASE SEE SPEECH PATHOLOGIST REPORT FOR OTHER FINDINGS AND RECOMMENDATIONS. Assessment and Plan - Diagnosis (1) Acute ischemic right middle cerebral artery (MCA) stroke Is this a current diagnosis for this admission?: Yes Plan: Not a TPA candidate, last seen normal greater than 24 hours prior to admission; left upper and lower extremity paralysis with severe dysarthria and somnolence Echocardiogram CT head showed evolving right sided stroke Carotid PVL showed mild disease bilaterally ICA MRA/MRI brain showed probable occlusion of right MCA at the mid M1 segment Aspirin, statin PT/ST/OT Out of the window for permissive hypertension, okay to treat blood pressure with goal 120/80 Poor prognosis overall given large size of occlusion -ST: MBS done, ok for pureed diet with thin liquids (2) Sepsis Is this a current diagnosis for this admission?: Yes (3) Bacteremia Is this a current diagnosis for this admission?: Yes Plan: Blood cultures growing staph simulans and proteus Antibiotics as above (4) Rhabdomyolysis Qualifiers: Rhabdomyolysis type: non-traumatic Qualified Code(s): M62.82 - Rhabdomyolysis Is this a current diagnosis for this admission?: Yes Plan: Found down at home for undetermined period of time, likely at least 24 hours CPK significantly elevated on admission, trending down IV fluids Trend BMP and monitor creatinine -improving (5) Elevated CPK Is this a current diagnosis for this admission?: Yes (6) Elevated troponin I level Is this a current diagnosis for this admission?: Yes (7) Hypertension Qualifiers: Hypertension type: essential hypertension Qualified Code(s): I10 - Essential (primary) hypertension Is this a current diagnosis for this admission?: Yes (8) Left hemiplegia Is this a current diagnosis for this admission?: Yes (9) Sleep apnea in adult Is this a current diagnosis for this admission?: Yes Plan: -CPAP QHS (10) Stroke Qualifiers: CVA mechanism: thrombosis Precerebral and cerebral artery: middle cerebral artery Laterality of affected vessel: right Qualified Code(s): I63.311 - Cerebral infarction due to thrombosis of right middle cerebral artery Is this a current diagnosis for this admission?: Yes - Plan Summary Summary: Patient is admitted to [facility] per stroke protocol were he will receive routine supportive and symptomatic cares. Patient will receive care as per the stroke protocol including a carotid Doppler study. Ativan 1 mg IV every 4 hours will be used as needed to relieve the patient's anxiety or restlessness. The stroke team will be consulted as usual per stroke protocol. Patient's home medications will be restarted as appropriate once his medical reconciliation can be completed. Discharge planning will be involved in aiding the placement of the patient in post hospital rehabilitation. CBCs, metabolic profiles, magnesium levels, troponin I and CPK levels will be will be followed as appropriate. Patient will be n.p.o. initially until he has been evaluated by the speech therapist. - Time Time Spent with patient: 35 or more minutes Medications reviewed and adjusted accordingly: Yes Anticipated discharge: SNF Within: within 72 hours - Inpatient Certification Medical Necessity: Significant Comorbidiites Make Outpatient Treatment Too Risky, Need Close Monitoring Due to Risk of Patient Decompensation, Need for IV Antibiotics, Risk of Complication if Not Cared For in Hospital, Risk of Diagnosis Which Will Require Inpatient Eval/Care/Monitoring
[2019-12-06 05:10] LABS: HEMATOCRIT 40.5 % (37.9-51.0); HEMOGLOBIN 13.9 g/dL (13.5-17.0); MEAN CORPUSCULAR HEMOGLOBIN 35.1 pg (27.0-33.4); MEAN CORPUSCULAR HGB CONC 34.3 g/dL (32.0-36.0); MEAN CORPUSCULAR VOLUME 102 fl (80-97); PLATELET COUNT 114 10^3/uL (150-450); RED BLOOD COUNT 3.96 10^6/uL (4.35-5.55); RED CELL DISTRIBUTION WIDTH 12.9 % (11.5-14.0); WHITE BLOOD COUNT 7.1 10^3/uL (4.0-10.5)
[2019-12-06] MEDS: CEFEPIME HCL 2 GM in DEXTROSE 5%-WATER 50 ML IV SCH ×3 (05:44→22:35)
[2019-12-06 05:45] LABS: ANION GAP 5 (5-19); BLOOD UREA NITROGEN 23 mg/dL (7-20); CALCIUM 8.4 mg/dL (8.4-10.2); CARBON DIOXIDE 26 mmol/L (22-30); CHLORIDE 113 mmol/L (98-107); CREATINE KINASE 300 U/L (55-170); GLUCOSE 111 mg/dL (75-110)
[2019-12-06] MEDS: VANCOMYCIN HCL 1,250 MG in DEXTROSE 5%-WATER 250 ML IV SCH ×3 (06:23→23:40)
[2019-12-06] MEDS: HEPARIN SOD (PORCINE) 5,000 UNIT/ML 1 ML VIAL SUBCUT SCH ×3 (06:30→22:35)
[2019-12-06] MEDS: HYDRALAZINE HCL INJ/PF 20 MG/1 ML SDV IV PRN (08:33)
[2019-12-06] MEDS ORDERED: NISOLDIPINE 20 MG PO SCH (10:00)
[2019-12-06] MEDS ORDERED: (PENDING PHARMACY ID) (Lisinopril [Prinivil 20 Mg Tablet] 20 MG) PO SCH (10:00)
[2019-12-06] MEDS: DEXTROSE 5%-LACTATED RINGERS 1,000 ML IV PRN ×2 (11:23→22:43)
[2019-12-06] MEDS: ASPIRIN 300 MG SUPP, RECTAL PR SCH (11:24)
[2019-12-06] MEDS: METOPROLOL SUCCINATE 50 MG TAB.SR.24H PO SCH (11:24)
[2019-12-06] MEDS: OMEGA-3 ACID ETHYL ESTERS 1 GM CAPSULE PO SCH (11:24)
[2019-12-06] MEDS: FAMOTIDINE INJ/PF 20 MG/2 ML SDV IV SCH ×2 (11:24→22:35)
[2019-12-06] MEDS: SILVER SULFADIAZINE 1% CREAM 400 GM TP SCH ×2 (11:38→22:35)
--- NOTE | 2019-12-06 11:58 | PDOC PROGRESS REPORT ---
Subjective Progress Note for:: 12/06/19 Subjective:: Patient is still doing well overall, talking appropriately. Still not opening his eyes. BP better but still high, increased meds. Left side still limp. D/w dtr who is a RN. Answered all questions. She plans to come here and take pt back to [place] to be with family after he goes to SNF and completes some rehab. Reason For Visit: ACUTE RIGHT MIDDLE CEREBRAL ARTERY CVA Physical Exam Vital Signs: Temp Pulse Resp BP Pulse Ox 98.5 F 59 L 20 151/87 H 95 12/06/19 07:36 12/06/19 08:00 12/06/19 08:00 12/06/19 09:30 12/06/19 08:00 Intake & Output 12/05/19 12/06/19 12/07/19 06:59 06:59 06:59 Intake Total 2700 2009 250 Output Total 1550 1325 Balance 1150 685 250 Weight 118 kg 119.6 kg General appearance: PRESENT: no acute distress, obese Head exam: PRESENT: atraumatic, normocephalic Eye exam: PRESENT: conjunctiva pink Mouth exam: PRESENT: moist Respiratory exam: PRESENT: clear to auscultation elodia. ABSENT: rales, rhonchi, wheezes Cardiovascular exam: PRESENT: RRR. ABSENT: diastolic murmur, rubs, systolic murmur GI/Abdominal exam: PRESENT: normal bowel sounds, soft. ABSENT: distended, guarding, mass, organolmegaly, rebound, tenderness Neurological exam: PRESENT: alert, awake, motor sensory deficit. ABSENT: altered, oriented to person, oriented to place, oriented to time, oriented to situation, CN II-XII grossly intact - severe LUE and LLE weakness, 0/5 Psychiatric exam: PRESENT: appropriate affect, normal mood Skin exam: PRESENT: dry, warm Results Laboratory Results: 12/06/19 04:13 12/06/19 04:13 12/06/19 12/06/19 04:13 04:13 WBC 7.1 RBC 3.96 L Hgb 13.9 Hct 40.5 MCV 102 H MCH 35.1 H MCHC 34.3 RDW 12.9 Plt Count 114 L Sodium 143.9 Potassium 4.0 Chloride 113 H Carbon Dioxide 26 Anion Gap 5 BUN 23 H Creatinine 0.85 Est GFR ( Amer) > 60 Glucose 111 H Calcium 8.4 Magnesium 2.6 H 12/02/19 22:52 Blood Blood Culture (PCR) - Final Staphylococcus Species Proteus Species 12/02/19 12/02/19 12/03/19 19:52 19:52 05:36 Creatine Kinase 1586 H CK-MB (CK-2) 9.25 H Troponin I 0.043 0.026 12/03/19 12/03/19 12/04/19 12:13 18:17 04:11 Creatine Kinase 1040 H CK-MB (CK-2) Troponin I 0.018 0.019 12/05/19 12/06/19 05:28 04:13 Creatine Kinase 600 H 300 H CK-MB (CK-2) Troponin I Impressions: Brain MRI with MRA 12/02/19 00:00 IMPRESSION: Limited examination demonstrating probable occlusion of the right middle cerebral artery at the mid M1 segment. Head MRI 12/02/19 00:00 IMPRESSION: Multiple areas of patchy ischemia/infarction in the distribution of the right middle cerebral artery as well as in the watershed distribution between the right MCA and REFERRAL NURSE. Findings are consistent with acute stroke. Chest X-Ray 12/02/19 19:57 IMPRESSION: Mild cardiac enlargement No evidence of acute process Head CT 12/02/19 19:57 IMPRESSION: Evolving infarct in the right basal ganglion with possible other area in the right medial temporal lobe. No hemorrhage. If clinically indicated this could be further assessed with brain MRI with diffusion-weighted imaging. Carotid Doppler Study 12/02/19 21:34 IMPRESSION: 1. Irregular heart rate throughout the examination. 2. Less than 50% stenosis of the internal carotid arteries bilaterally with minimal plaque seen bilaterally. Modified Barium Swallow 12/05/19 00:01 IMPRESSION: LARYNGEAL PENETRATION WITHOUT ASPIRATION. PLEASE SEE SPEECH PATHOLOGIST REPORT FOR OTHER FINDINGS AND RECOMMENDATIONS. Assessment and Plan - Diagnosis (1) Acute ischemic right middle cerebral artery (MCA) stroke Is this a current diagnosis for this admission?: Yes Plan: Not a TPA candidate, last seen normal greater than 24 hours prior to admission; left upper and lower extremity paralysis with severe dysarthria and somnolence Echocardiogram CT head showed evolving right sided stroke Carotid PVL showed mild disease bilaterally ICA MRA/MRI brain showed probable occlusion of right MCA at the mid M1 segment Aspirin, statin PT/ST/OT Out of the window for permissive hypertension, okay to treat blood pressure with goal 120/80 Poor prognosis overall given large size of occlusion -ST: MBS done, ok for pureed diet with thin liquids -Needs SNF, family in agreement (2) Sepsis Is this a current diagnosis for this admission?: Yes (3) Bacteremia Is this a current diagnosis for this admission?: Yes (4) Rhabdomyolysis Qualifiers: Rhabdomyolysis type: non-traumatic Qualified Code(s): M62.82 - Rhabdomyolys is Is this a current diagnosis for this admission?: Yes (5) Elevated CPK Is this a current diagnosis for this admission?: Yes (6) Elevated troponin I level Is this a current diagnosis for this admission?: Yes (7) Hypertension Qualifiers: Hypertension type: essential hypertension Qualified Code(s): I10 - Essential (primary) hypertension Is this a current diagnosis for this admission?: Yes (8) Left hemiplegia Is this a current diagnosis for this admission?: Yes Plan: Therapy consulted: needs SNF -SNF needed (9) Sleep apnea in adult Is this a current diagnosis for this admission?: Yes (10) Stroke Qualifiers: CVA mechanism: thrombosis Precerebral and cerebral artery: middle cerebral artery Laterality of affected vessel: right Qualified Code(s): I63.311 - Cerebral infarction due to thrombosis of right middle cerebral artery Is this a current diagnosis for this admission?: Yes Plan: -ASA, statin - Plan Summary Summary: Patient is admitted to [facility] per stroke protocol were he will receive routine supportive and symptomatic cares. Patient will receive care as per the stroke protocol including a carotid Doppler study. Ativan 1 mg IV every 4 hours will be used as needed to relieve the patient's anxiety or restlessness. The stroke team will be consulted as usual per stroke protocol. Patient's home medications will be restarted as appropriate once his medical reconciliation can be completed. Discharge planning will be involved in aiding the placement of the patient in post hospital rehabilitation. CBCs, metabolic profiles, magnesium levels, troponin I and CPK levels will be will be followed as appropriate. Patient will be n.p.o. initially until he has been evaluated by the speech therapist. - Time Time Spent with patient: 25-34 minutes Medications reviewed and adjusted accordingly: Yes Anticipated discharge: SNF - Inpatient Certification Based on my medical assessment, after consideration of the patient's comorbidities, presenting symptoms, or acuity I expect that the services needed warrant INPATIENT care.: Yes I certify that my determination is in accordance with my understanding of Medicare's requirements for reasonable and necessary INPATIENT services [42 CFR 412.3e].: Yes Medical Necessity: Significant Comorbidiites Make Outpatient Treatment Too Risky, Need Close Monitoring Due to Risk of Patient Decompensation, Need for IV Antibiotics
[2019-12-06] MEDS: ASPIRIN 325 MG TABLET, ENT COATED PO SCH (13:40)
[2019-12-06] MEDS ORDERED: VANCOMYCIN HCL 1,250 MG in DEXTROSE 5%-WATER 250 ML IV SCH (14:30)
[2019-12-07] MEDS: CEFEPIME HCL 2 GM in DEXTROSE 5%-WATER 50 ML IV SCH ×2 (05:56→13:06)
[2019-12-07] MEDS: HEPARIN SOD (PORCINE) 5,000 UNIT/ML 1 ML VIAL SUBCUT SCH ×3 (05:56→21:35)
[2019-12-07] MEDS: VANCOMYCIN HCL 1,250 MG in DEXTROSE 5%-WATER 250 ML IV SCH ×2 (05:56→14:14)
[2019-12-07 06:44] LABS: VANCOMYCIN,TROUGH 10.7 ug/mL (5.0-20.0)
[2019-12-07] MEDS: FAMOTIDINE INJ/PF 20 MG/2 ML SDV IV SCH ×2 (09:05→21:35)
[2019-12-07] MEDS: LISINOPRIL 10 MG TABLET PO SCH (09:05)
[2019-12-07] MEDS: SILVER SULFADIAZINE 1% CREAM 400 GM TP SCH ×2 (09:06→21:35)
[2019-12-07] MEDS: OMEGA-3 ACID ETHYL ESTERS 1 GM CAPSULE PO SCH (09:06)
[2019-12-07] MEDS: ASPIRIN 325 MG TABLET, ENT COATED PO SCH (09:06)
[2019-12-07] MEDS: METOPROLOL SUCCINATE 50 MG TAB.SR.24H PO SCH (09:06)
[2019-12-07] MEDS: HYDRALAZINE HCL INJ/PF 20 MG/1 ML SDV IV PRN (10:15)
--- NOTE | 2019-12-07 13:58 | PDOC PROGRESS REPORT ---
Subjective Progress Note for:: 12/07/19 Subjective:: Resting in bed. Still will not open his eyes even though he acknowledges and says yes when prompted. His appetite is poor but when you ask him he states that it is fine. He did exhibit some right ankle discomfort when I manipulated his foot. Reason For Visit: ACUTE RIGHT MIDDLE CEREBRAL ARTERY CVA Physical Exam Vital Signs: Temp Pulse Resp BP Pulse Ox 98.7 F 70 22 H 159/76 H 93 12/07/19 10:51 12/07/19 12:00 12/07/19 12:00 12/07/19 12:00 12/07/19 12:00 Intake & Output 12/06/19 12/07/19 12/08/19 06:59 06:59 06:59 Intake Total 2009 2720 250 Output Total 1325 1400 Balance 685 1320 250 Weight 119.6 kg 120.8 kg General appearance: PRESENT: no acute distress, cooperative, well-developed Head exam: PRESENT: atraumatic, normocephalic Ear exam: PRESENT: normal external ear exam. ABSENT: bleeding, drainage Mouth exam: PRESENT: moist Respiratory exam: PRESENT: clear to auscultation elodia, symmetrical, unlabored. ABSENT: prolonged expiratory phas, rales, rhonchi, tachypnea, wheezes Cardiovascular exam: PRESENT: RRR, +S1, +S2, systolic murmur - 2/6 GI/Abdominal exam: PRESENT: normal bowel sounds, soft. ABSENT: distended, guarding, tenderness Rectal exam: PRESENT: deferred Gentrourinary exam: PRESENT: indwelling catheter Extremities exam: ABSENT: pedal edema Musculoskeletal exam: PRESENT: normal inspection. ABSENT: ambulatory Neurological exam: PRESENT: alert, awake, oriented to person, oriented to place, oriented to situation, motor sensory deficit. ABSENT: CN II-XII grossly intact Psychiatric exam: PRESENT: flat affect. ABSENT: agitated, anxious Focused psych exam: ABSENT: delusional, paranoid, restlessness Skin exam: PRESENT: dry, normal color, warm Results Laboratory Results: 12/06/19 04:13 12/06/19 04:13 12/02/19 22:52 Blood Blood Culture (PCR) - Final Staphylococcus Species Proteus Species 12/02/19 22:52 Blood Blood Culture - Final Proteus Species Staphylococcus Simulans 04/14/20 04/14/20 04/15/20 19:52 19:52 05:36 Creatine Kinase 1586 H CK-MB (CK-2) 9.25 H Troponin I 0.043 0.026 12/03/19 12/03/19 12/04/19 12:13 18:17 04:11 Creatine Kinase 1040 H CK-MB (CK-2) Troponin I 0.018 0.019 12/05/19 12/06/19 05:28 04:13 Creatine Kinase 600 H 300 H CK-MB (CK-2) Troponin I Impressions: Brain MRI with MRA 12/02/19 00:00 IMPRESSION: Limited examination demonstrating probable occlusion of the right middle cerebral artery at the mid M1 segment. Head MRI 12/02/19 00:00 IMPRESSION: Multiple areas of patchy ischemia/infarction in the distribution of the right middle cerebral artery as well as in the watershed distribution between the right MCA and INSULATION MANAGER. Findings are consistent with acute stroke. Chest X-Ray 12/02/19 19:57 IMPRESSION: Mild cardiac enlargement No evidence of acute process Head CT 12/02/19 19:57 IMPRESSION: Evolving infarct in the right basal ganglion with possible other area in the right medial temporal lobe. No hemorrhage. If clinically indicated this could be further assessed with brain MRI with diffusion-weighted imaging. Carotid Doppler Study 12/02/19 21:34 IMPRESSION: 1. Irregular heart rate throughout the examination. 2. Less than 50% stenosis of the internal carotid arteries bilaterally with minimal plaque seen bilaterally. Modified Barium Swallow 12/05/19 00:01 IMPRESSION: LARYNGEAL PENETRATION WITHOUT ASPIRATION. PLEASE SEE SPEECH PATHOLOGIST REPORT FOR OTHER FINDINGS AND RECOMMENDATIONS. Assessment and Plan - Diagnosis (1) Acute ischemic right middle cerebral artery (MCA) stroke Is this a current diagnosis for this admission?: Yes Plan: Not a TPA candidate, last seen normal greater than 24 hours prior to admission; left upper and lower extremity paralysis with severe dysarthria and somnolence Echocardiogram CT head showed evolving right sided stroke Carotid PVL showed mild disease bilaterally ICA MRA/MRI brain showed probable occlusion of right MCA at the mid M1 segment Aspirin, statin PT/ST/OT Out of the window for permissive hypertension, okay to treat blood pressure with goal 120/80 Poor prognosis overall given large size of occlusion -ST: MBS done, ok for pureed diet with thin liquids -Needs SNF, family in agreement 12/07/2019 Still with dense left hemiplegia. He continues to work with PT, speech and OT. Referrals to care home facility are being made. (2) Sepsis Is this a current diagnosis for this admission?: Yes Plan: Unclear source but suspect superficial skin infection across abdomen which was likely contaminated with stool and urine that patient was found lying in for 1 to 2 days Empiric vancomycin/cefepime Blood cultures positive for coag negative methicillin-resistant staph and gram- negative rods IV fluids 12/07/2019 Only 1 set of blood culture bottles were positive. It was a coagulase-negative staph. There is also Proteus present. This clearly would have turned both sets positive if this was true bacteremia. He did not have hypotension nor did he have hypoxemia. I do not believe sepsis was present. (3) Bacteremia Is this a current diagnosis for this admission?: Yes Plan: Blood cultures growing staph simulans and proteus Antibiotics as above 12/07/2019 I believe the bacteremia is not present based on the pattern of blood culture results. I am going to stop the antibiotics and monitor the patient closely (4) Rhabdomyolysis Qualifiers: Rhabdomyolysis type: non-traumatic Qualified Code(s): M62.82 - Rhabdomyolysis Is this a current diagnosis for this admission?: Yes Plan: Found down at home for undetermined period of time, likely at least 24 hours CPK significantly elevated on admission, trending down IV fluids Trend BMP and monitor creatinine -improving 12/07/2019 The creatinine kinase levels have come down significantly. Because of the stroke I will restart his statin therapy and monitor his creatinine kinase levels. (5) Hypertension Qualifiers: Hypertension type: essential hypertension Qualified Code(s): I10 - Essential (primary) hypertension Is this a current diagnosis for this admission?: Yes Plan: 12/07/2019 His blood pressures are still high. He is on the calcium channel mark nisoldipine at home. I will substitute nifedipine to try and improve his blood pressure. Continue to monitor closely on telemetry and with vital signs. (6) Left hemiplegia Is this a current diagnosis for this admission?: Yes Plan: Therapy consulted: needs SNF -SNF needed 12/07/2019 Still with very dense left hemiplegia. Continue therapy and the patient will require care home facility. (7) Right leg pain Is this a current diagnosis for this admission?: Yes Plan: 12/07/2019 While examining the patient he reported significant discomfort when manipulating his right foot. I am going to order a uric acid level. It certainly could be from rhabdo. Continue with physical therapy. As needed analgesia as well. (8) Elevated troponin I level Is this a current diagnosis for this admission?: Yes Plan: Suspect cardiac strain due to sepsis No chest pain, however patient has great difficulty expressing complaints Trend troponin Echocardiogram 12/07/2019 The troponins were minimally elevated. They trended down quickly. The echocardiogram showed normal systolic function but grade 2/4 diastolic dysfunction. No further need to check troponin levels. (9) Dysphagia as late effect of cerebrovascular accident (CVA) Is this a current diagnosis for this admission?: Yes Plan: 12/07/2019 Speech therapy continues to work with the patient. He is on pured diet. His appetite has been poor. - Plan Summary Summary: Patient is admitted to [facility] per stroke protocol were he will receive routine supportive and symptomatic cares. Patient will receive care as per the stroke protocol including a carotid Doppler study. Ativan 1 mg IV every 4 hours will be used as needed to relieve the patient's anxiety or restlessness. The stroke team will be consulted as usual per stroke protocol. Patient's home medications will be restarted as appropriate once his medical reconciliation can be completed. Discharge planning will be involved in aiding the placement of the patient in post hospital rehabilitation. CBCs, metabolic profiles, magnesium levels, troponin I and CPK levels will be will be followed as appropriate. Patient will be n.p.o. initially until he has been evaluated by the speech therapist. - Time Time Spent with patient: 15-24 minutes Medications reviewed and adjusted accordingly: Yes Anticipated discharge: SNF
[2019-12-07] MEDS: DEXTROSE 5%-LACTATED RINGERS 1,000 ML IV PRN (14:15)
[2019-12-07] MEDS: NIFEDIPINE 30 MG TAB.ER.24 PO SCH (16:39)
[2019-12-07] MEDS: ATORVASTATIN CALCIUM 80 MG TABLET PO SCH (21:35)
[2019-12-08] MEDS: DEXTROSE 5%-LACTATED RINGERS 1,000 ML IV PRN ×2 (02:20→12:47)
[2019-12-08 05:48] LABS: BLOOD UREA NITROGEN 20 mg/dL (7-20); CALCIUM 8.3 mg/dL (8.4-10.2); CARBON DIOXIDE 23 mmol/L (22-30); CREATINE KINASE 123 U/L (55-170); GLUCOSE 108 mg/dL (75-110); POTASSIUM 4.3 mmol/L (3.6-5.0); URIC ACID 3.9 mg/dL (3.5-8.5)
[2019-12-08 05:53] LABS: CHLORIDE 109 mmol/L (98-107)
[2019-12-08 05:56] LABS: ANION GAP 6 (5-19)
[2019-12-08] MEDS: HEPARIN SOD (PORCINE) 5,000 UNIT/ML 1 ML VIAL SUBCUT SCH ×3 (06:54→22:44)
[2019-12-08] MEDS: METOPROLOL SUCCINATE 50 MG TAB.SR.24H PO SCH (10:11)
[2019-12-08] MEDS: NIFEDIPINE 30 MG TAB.ER.24 PO SCH (10:11)
[2019-12-08] MEDS: OMEGA-3 ACID ETHYL ESTERS 1 GM CAPSULE PO SCH (10:11)
[2019-12-08] MEDS: FAMOTIDINE INJ/PF 20 MG/2 ML SDV IV SCH ×2 (10:12→22:44)
[2019-12-08] MEDS: LISINOPRIL 10 MG TABLET PO SCH (10:12)
[2019-12-08] MEDS: SILVER SULFADIAZINE 1% CREAM 400 GM TP SCH ×2 (10:12→22:45)
[2019-12-08] MEDS: ASPIRIN 325 MG TABLET, ENT COATED PO SCH (10:12)
--- NOTE | 2019-12-08 10:48 | PDOC PROGRESS REPORT ---
Subjective Progress Note for:: 12/08/19 Subjective:: Was working with speech therapy earlier. He is now able to advance his diet slightly. Pending transfer to [facility] facility for ongoing rehab. Reason For Visit: ACUTE RIGHT MIDDLE CEREBRAL ARTERY CVA Physical Exam Vital Signs: Temp Pulse Resp BP Pulse Ox 98.4 F 60 18 151/80 H 90 L 12/08/19 07:39 12/08/19 08:00 12/08/19 08:00 12/08/19 08:00 12/08/19 08:00 Intake & Output 12/07/19 12/08/19 12/09/19 06:59 06:59 06:59 Intake Total 2720 3325 Output Total 1400 1350 Balance 1320 1975 Weight 120.8 kg 119.8 kg General appearance: PRESENT: no acute distress, cooperative, morbidly obese, well-developed Head exam: PRESENT: atraumatic, normocephalic Ear exam: PRESENT: normal external ear exam. ABSENT: bleeding, drainage Mouth exam: PRESENT: dry mucosa Respiratory exam: PRESENT: clear to auscultation elodia, symmetrical, unlabored. ABSENT: prolonged expiratory phas - Limited inspiratory phase, rales, rhonchi, tachypnea, wheezes Cardiovascular exam: PRESENT: RRR, +S1, +S2, systolic murmur - 2/6. ABSENT: irregular rhythm GI/Abdominal exam: PRESENT: normal bowel sounds, soft. ABSENT: distended, guarding, tenderness Rectal exam: PRESENT: deferred Gentrourinary exam: PRESENT: indwelling catheter Extremities exam: PRESENT: pedal edema Neurological exam: PRESENT: alert, awake, oriented to person, oriented to place, oriented to situation, motor sensory deficit - Still with dense left hemiplegia., other - The patient verbally interacts appropriately. He has slightly limited capacity for following directions. For instance he will not open his eyes on command. When asked to stick out his tongue it barely got past the lips. Psychiatric exam: PRESENT: flat affect. ABSENT: agitated, anxious Focused psych exam: ABSENT: delusional, paranoid, restlessness Skin exam: PRESENT: dry, normal color, warm. ABSENT: rash Results Laboratory Results: 12/06/19 04:13 12/08/19 04:42 12/08/19 04:42 Sodium 137.7 Potassium 4.3 Chloride 109 H Carbon Dioxide 23 Anion Gap 6 BUN 20 Creatinine 0.73 Est GFR ( Amer) > 60 Glucose 108 Uric Acid 3.9 Calcium 8.3 L Magnesium 2.3 12/02/19 23:09 Blood Blood Culture - Final NO GROWTH IN 5 DAYS 12/02/19 12/02/19 12/03/19 19:52 19:52 05:36 Creatine Kinase 1586 H CK-MB (CK-2) 9.25 H Troponin I 0.043 0.026 12/03/19 12/03/19 12/04/19 12:13 18:17 04:11 Creatine Kinase 1040 H CK-MB (CK-2) Troponin I 0.018 0.019 12/05/19 12/06/19 12/08/19 05:28 04:13 04:42 Creatine Kinase 600 H 300 H 123 CK-MB (CK-2) Troponin I Impressions: Brain MRI with MRA 12/02/19 00:00 IMPRESSION: Limited examination demonstrating probable occlusion of the right middle cerebral artery at the mid M1 segment. Head MRI 12/02/19 00:00 IMPRESSION: Multiple areas of patchy ischemia/infarction in the distribution of the right middle cerebral artery as well as in the watershed distribution between the right MCA and [employer]. Findings are consistent with acute stroke. Chest X-Ray 12/02/19 19:57 IMPRESSION: Mild cardiac enlargement No evidence of acute process Head CT 12/02/19 19:57 IMPRESSION: Evolving infarct in the right basal ganglion with possible other area in the right medial temporal lobe. No hemorrhage. If clinically indicated this could be further assessed with brain MRI with diffusion-weighted imaging. Carotid Doppler Study 12/02/19 21:34 IMPRESSION: 1. Irregular heart rate throughout the examination. 2. Less than 50% stenosis of the internal carotid arteries bilaterally with minimal plaque seen bilaterally. Modified Barium Swallow 12/05/19 00:01 IMPRESSION: LARYNGEAL PENETRATION WITHOUT ASPIRATION. PLEASE SEE SPEECH PATHOLOGIST REPORT FOR OTHER FINDINGS AND RECOMMENDATIONS. Assessment and Plan - Diagnosis (1) Acute ischemic right middle cerebral artery (MCA) stroke Is this a current diagnosis for this admission?: Yes Plan: Not a TPA candidate, last seen normal greater than 24 hours prior to admission; left upper and lower extremity paralysis with severe dysarthria and somnolence Echocardiogram CT head showed evolving right sided stroke Carotid PVL showed mild disease bilaterally ICA MRA/MRI brain showed probable occlusion of right MCA at the mid M1 segment Aspirin, statin PT/ST/OT Out of the window for permissive hypertension, okay to treat blood pressure with goal 120/80 Poor prognosis overall given large size of occlusion -ST: MBS done, ok for pureed diet with thin liquids -Needs SNF, family in agreement 12/07/2019 Still with dense left hemiplegia. He continues to work with PT, speech and OT. Referrals to [facility] facility are being made. 12/08/2019 Continue to work with PT/OT and speech awaiting [facility] facility placement (2) Sepsis Is this a current diagnosis for this admission?: Yes Plan: Unclear source but suspect superficial skin infection across abdomen which was likely contaminated with stool and urine that patient was found lying in for 1 to 2 days Empiric vancomycin/cefepime Blood cultures positive for coag negative methicillin-resistant staph and gram- negative rods IV fluids 12/07/2019 Only 1 set of blood culture bottles were positive. It was a coagulase-negative staph. There is also Proteus present. This clearly would have turned both sets positive if this was true bacteremia. He did not have hypotension nor did he have hypoxemia. I do not believe sepsis was present. (3) Bacteremia Is this a current diagnosis for this admission?: Yes Plan: Blood cultures growing staph simulans and proteus Antibiotics as above 12/07/2019 I believe the bacteremia is not present based on the pattern of blood culture results. I am going to stop the antibiotics and monitor the patient closely (4) Rhabdomyolysis Qualifiers: Rhabdomyolysis type: non-traumatic Qualified Code(s): M62.82 - Rhabdomyolysis Is this a current diagnosis for this admission?: Yes Plan: Found down at home for undetermined period of time, likely at least 24 hours CPK significantly elevated on admission, trending down IV fluids Trend BMP and monitor creatinine -improving 12/07/2019 The creatinine kinase levels have come down significantly. Because of the stroke I will restart his statin therapy and monitor his creatinine kinase levels. 12/08/2019 Serum creatinine kinase is normal. We will no longer order creatinine kinase levels. (5) Hypertension Qualifiers: Hypertension type: essential hypertension Qualified Code(s): I10 - Essential (primary) hypertension Is this a current diagnosis for this admission?: Yes Plan: 12/07/2019 His blood pressures are still high. He is on the calcium channel mark nisoldipine at home. I will substitute nifedipine to try and improve his blood pressure. Continue to monitor closely on telemetry and with vital signs. 12/08/2019 With the addition of nifedipine the blood pressures have decreased. They must be mindful not to let them decrease too much. Systolic blood pressure approximately 120-130 would be acceptable. If his blood pressure stays low we may need to make a change such as decreasing the lisinopril. (6) Left hemiplegia Is this a current diagnosis for this admission?: Yes Plan: Therapy consulted: needs SNF -SNF needed 12/07/2019 Still with very dense left hemiplegia. Continue therapy and the patient will require [facility] facility. 12/08/2019 No significant change at this time. (7) Right leg pain Is this a current diagnosis for this admission?: Yes Plan: 12/07/2019 While examining the patient he reported significant discomfort when manipulating his right foot. I am going to order a uric acid level. It certainly could be from rhabdo. Continue with physical therapy. As needed analgesia as well. 12/08/2019 No obvious source of the pain. It is likely a combination of immobility and the rhabdo that he suffered immediately after his stroke. (8) Elevated troponin I level Is this a current diagnosis for this admission?: Yes Plan: Suspect cardiac strain due to sepsis No chest pain, however patient has great difficulty expressing complaints Trend troponin Echocardiogram 12/07/2019 The troponins were minimally elevated. They trended down quickly. The echocardiogram showed normal systolic function but grade 2/4 diastolic dysfunction. No further need to check troponin levels. (9) Dysphagia as late effect of cerebrovascular accident (CVA) Is this a current diagnosis for this admission?: Yes Plan: 12/07/2019 Speech therapy continues to work with the patient. He is on pured diet. His appetite has been poor. 12/08/2019 Please also see speech therapy notes. They have advanced his diet to the next level. He will need ongoing speech therapy at the [facility] facility. (10) Chronic diastolic heart failure Is this a current diagnosis for this admission?: Yes - Plan Summary Summary: Patient is admitted to [facility] per stroke protocol were he will receive routine supportive and symptomatic cares. Patient will receive care as per the stroke protocol including a carotid Doppler study. Ativan 1 mg IV every 4 hours will be used as needed to relieve the patient's anxiety or restlessness. The stroke team will be consulted as usual per stroke protocol. Patient's home medications will be restarted as appropriate once his medical reconciliation can be completed. Discharge planning will be involved in aiding the placement of the patient in post hospital rehabilitation. CBCs, metabolic profiles, magnesium levels, troponin I and CPK levels will be will be followed as appropriate. Patient will be n.p.o. initially until he has been evaluated by the speech therapist. 12/08/2019 As the patient is awaiting [facility] facility placement he will have his Covid-19 screening test. - Time Time Spent with patient: 15-24 minutes Medications reviewed and adjusted accordingly: Yes Anticipated discharge: SNF
[2019-12-08] MEDS: ATORVASTATIN CALCIUM 80 MG TABLET PO SCH (22:44)
[2019-12-09] MEDS: HEPARIN SOD (PORCINE) 5,000 UNIT/ML 1 ML VIAL SUBCUT SCH ×3 (05:55→22:00)
[2019-12-09 06:49] LABS: HEMATOCRIT 38.4 % (37.9-51.0); HEMOGLOBIN 13.4 g/dL (13.5-17.0); MEAN CORPUSCULAR HEMOGLOBIN 35.3 pg (27.0-33.4); MEAN CORPUSCULAR VOLUME 101 fl (80-97); PLATELET COUNT 148 10^3/uL (150-450); RED BLOOD COUNT 3.81 10^6/uL (4.35-5.55); RED CELL DISTRIBUTION WIDTH 12.7 % (11.5-14.0); WHITE BLOOD COUNT 6.6 10^3/uL (4.0-10.5)
[2019-12-09 07:09] LABS: ANION GAP 6 (5-19); BLOOD UREA NITROGEN 22 mg/dL (7-20); CALCIUM 8.3 mg/dL (8.4-10.2); CARBON DIOXIDE 26 mmol/L (22-30); CHLORIDE 106 mmol/L (98-107); GLUCOSE 109 mg/dL (75-110); POTASSIUM 4.2 mmol/L (3.6-5.0)
[2019-12-09] MEDS: HYDRALAZINE HCL INJ/PF 20 MG/1 ML SDV IV PRN (08:05)
[2019-12-09] MEDS: OMEGA-3 ACID ETHYL ESTERS 1 GM CAPSULE PO SCH (10:56)
[2019-12-09] MEDS: NIFEDIPINE 30 MG TAB.ER.24 PO SCH (10:56)
[2019-12-09] MEDS: LISINOPRIL 10 MG TABLET PO SCH (10:56)
[2019-12-09] MEDS: SILVER SULFADIAZINE 1% CREAM 400 GM TP SCH ×2 (10:56→21:59)
[2019-12-09] MEDS: ASPIRIN 325 MG TABLET, ENT COATED PO SCH (10:56)
[2019-12-09] MEDS: METOPROLOL SUCCINATE 50 MG TAB.SR.24H PO SCH (10:56)
[2019-12-09] MEDS: FAMOTIDINE INJ/PF 20 MG/2 ML SDV IV SCH ×2 (10:56→21:59)
--- NOTE | 2019-12-09 11:50 | PDOC PROGRESS REPORT ---
Subjective Progress Note for:: 12/09/19 Subjective:: Patient seems to be doing well today. He does have persistent profound left hemispatial neglect. Reportedly, we are now waiting on authorization by [facility] to get patient to a rehab facility. Per my discussion with his daughter and son last week, they preferred that he go to rehab sometime after today, possibly Sunday. Unclear if this plan has changed since they are now here reportedly. Blood pressure not quite at goal, adjusting medications. His neurologic exam is not significantly changed from previous days. He does open his eyes but only when instructed to do so multiple times. Reason For Visit: ACUTE RIGHT MIDDLE CEREBRAL ARTERY CVA Physical Exam Vital Signs: Temp Pulse Resp BP Pulse Ox 98.8 F 60 18 148/87 H 91 L 12/09/19 07:59 12/09/19 08:00 12/09/19 08:00 12/09/19 09:00 12/09/19 08:00 Intake & Output 12/08/19 12/09/19 12/10/19 06:59 06:59 06:59 Intake Total 3325 1982 Output Total 1350 1400 Balance 1975 582 Weight 119.8 kg 120.8 kg General appearance: PRESENT: no acute distress, well-developed, well-nourished Head exam: PRESENT: atraumatic, normocephalic Eye exam: PRESENT: conjunctiva pink Mouth exam: PRESENT: moist Respiratory exam: PRESENT: clear to auscultation elodia. ABSENT: rales, rhonchi, wheezes Cardiovascular exam: PRESENT: RRR. ABSENT: diastolic murmur, rubs, systolic murmur GI/Abdominal exam: PRESENT: normal bowel sounds, soft. ABSENT: distended, guarding, mass, organolmegaly, rebound, tenderness Neurological exam: PRESENT: alert, awake, oriented to person, oriented to place, motor sensory deficit - Left facial droop, left hemispatial neglect, left upper and lower extremity 0/4 strength as before. ABSENT: oriented to time, oriented to situation, CN II-XII grossly intact Psychiatric exam: PRESENT: flat affect, normal mood Skin exam: PRESENT: dry, intact, warm Results Laboratory Results: 12/09/19 05:47 12/09/19 05:47 12/09/19 12/09/19 05:47 05:47 WBC 6.6 RBC 3.81 L Hgb 13.4 L Hct 38.4 MCV 101 H MCH 35.3 H MCHC 35.0 RDW 12.7 Plt Count 148 L Sodium 137.8 Potassium 4.2 Chloride 106 Carbon Dioxide 26 Anion Gap 6 BUN 22 H Creatinine 0.88 Est GFR ( Amer) > 60 Glucose 109 Calcium 8.3 L Magnesium 2.4 H 12/02/19 12/02/19 12/03/19 19:52 19:52 05:36 Creatine Kinase 1586 H CK-MB (CK-2) 9.25 H Troponin I 0.043 0.026 12/03/19 12/03/19 12/04/19 12:13 18:17 04:11 Creatine Kinase 1040 H CK-MB (CK-2) Troponin I 0.018 0.019 12/05/19 12/06/19 12/08/19 05:28 04:13 04:42 Creatine Kinase 600 H 300 H 123 CK-MB (CK-2) Troponin I Impressions: Brain MRI with MRA 12/02/19 00:00 IMPRESSION: Limited examination demonstrating probable occlusion of the right middle cerebral artery at the mid M1 segment. Head MRI 12/02/19 00:00 IMPRESSION: Multiple areas of patchy ischemia/infarction in the distribution of the right middle cerebral artery as well as in the watershed distribution between the right MCA and [employer]. Findings are consistent with acute stroke. Chest X-Ray 12/02/19 19:57 IMPRESSION: Mild cardiac enlargement No evidence of acute process Head CT 12/02/19 19:57 IMPRESSION: Evolving infarct in the right basal ganglion with possible other area in the right medial temporal lobe. No hemorrhage. If clinically indicated this could be further assessed with brain MRI with diffusion-weighted imaging. Carotid Doppler Study 12/02/19 21:34 IMPRESSION: 1. Irregular heart rate throughout the examination. 2. Less than 50% stenosis of the internal carotid arteries bilaterally with minimal plaque seen bilaterally. Modified Barium Swallow 12/05/19 00:01 IMPRESSION: LARYNGEAL PENETRATION WITHOUT ASPIRATION. PLEASE SEE SPEECH PATHOLOGIST REPORT FOR OTHER FINDINGS AND RECOMMENDATIONS. Assessment and Plan - Diagnosis (1) Acute ischemic right middle cerebral artery (MCA) stroke Is this a current diagnosis for this admission?: Yes Plan: Not a TPA candidate, last seen normal greater than 24 hours prior to admission; left upper and lower extremity paralysis with severe dysarthria and somnolence Echocardiogram CT head showed evolving right sided stroke Carotid PVL showed mild disease bilaterally ICA MRA/MRI brain showed probable occlusion of right MCA at the mid M1 segment Aspirin, statin PT/ST/OT Out of the window for permissive hypertension, okay to treat blood pressure with goal 120/80 Poor prognosis overall given large size of occlusion -ST: MBS done, ok for pureed diet with thin liquids -Needs SNF, family in agreement 12/07/2019 Still with dense left hemiplegia. He continues to work with PT, speech and OT. Referrals to residential facility are being made. 12/08/2019 Continue to work with PT/OT and speech awaiting residential facility placement 12/09/2019 Blood pressure not yet at goal, increasing medication regimen Waiting on approval (2) Sepsis Is this a current diagnosis for this admission?: Yes (3) Bacteremia Is this a current diagnosis for this admission?: Yes (4) Rhabdomyolysis Qualifiers: Rhabdomyolysis type: non-traumatic Qualified Code(s): M62.82 - Rhabdomyolysis Is this a current diagnosis for this admission?: Yes (5) Elevated CPK Is this a current diagnosis for this admission?: Yes (6) Elevated troponin I level Is this a current diagnosis for this admission?: Yes (7) Hypertension Qualifiers: Hypertension type: essential hypertension Qualified Code(s): I10 - Essential (primary) hypertension Is this a current diagnosis for this admission?: Yes (8) Left hemiplegia Is this a current diagnosis for this admission?: Yes (9) Sleep apnea in adult Is this a current diagnosis for this admission?: Yes (10) Stroke Qualifiers: CVA mechanism: thrombosis Precerebral and cerebral artery: middle cerebral artery Laterality of affected vessel: right Qualified Code(s): I63.311 - Cerebral infarction due to thrombosis of right middle cerebral artery Is this a current diagnosis for this admission?: Yes (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 Patient will receive care as per the stroke protocol including a carotid Doppler study. Ativan 1 mg IV every 4 hours will be used as needed to relieve the patient's anxiety or restlessness. The stroke team will be consulted as usual per stroke protocol. Patient's home medications will be restarted as appropriate once his medical reconciliation can be completed. Discharge planning will be involved in aiding the placement of the patient in post hospital rehabilitation. CBCs, metabolic profiles, magnesium levels, troponin I and CPK levels will be will be followed as appropriate. Patient will be n.p.o. initially until he has been evaluated by the speech therapist. 12/08/2019 As the patient is awaiting residential facility placement he will have his Covid-19 screening test. - Time Time Spent with patient: 25-34 minutes Medications reviewed and adjusted accordingly: Yes Anticipated discharge: SNF Within: within 48 hours - Inpatient Certification Medical Necessity: Significant Comorbidiites Make Outpatient Treatment Too Risky, Need Close Monitoring Due to Risk of Patient Decompensation, Risk of Complication if Not Cared For in Hospital, Risk of Diagnosis Which Will Require Inpatient Eval/Care/Monitoring
[2019-12-09] MEDS ORDERED: NIFEDIPINE 30 MG TAB.ER.24 PO ONE (12:00)
[2019-12-09] MEDS: ATORVASTATIN CALCIUM 80 MG TABLET PO SCH (21:59)
[2019-12-10] MEDS: HEPARIN SOD (PORCINE) 5,000 UNIT/ML 1 ML VIAL SUBCUT SCH ×2 (05:23→13:20)
[2019-12-10] MEDS ORDERED: CHLORTHALIDONE 25 MG TABLET PO SCH (08:00)
[2019-12-10] MEDS: OMEGA-3 ACID ETHYL ESTERS 1 GM CAPSULE PO SCH (09:28)
[2019-12-10] MEDS: ASPIRIN 325 MG TABLET, ENT COATED PO SCH (09:28)
[2019-12-10] MEDS: METOPROLOL SUCCINATE 50 MG TAB.SR.24H PO SCH (09:28)
[2019-12-10] MEDS: LISINOPRIL 10 MG TABLET PO SCH (09:28)
[2019-12-10] MEDS: FAMOTIDINE INJ/PF 20 MG/2 ML SDV IV SCH (09:29)
[2019-12-10] MEDS: SILVER SULFADIAZINE 1% CREAM 400 GM TP SCH (09:29)
[2019-12-10] MEDS ORDERED: NIFEDIPINE 30 MG TAB.ER.24 PO SCH (10:00)
--- NOTE | 2019-12-10 10:47 | PDOC PROGRESS REPORT ---
Subjective Progress Note for:: 12/10/19 Subjective:: Patient doing about the same today. Blood pressure still not at goal, added chlorthalidone. Coronavirus test is still pending and this is what is holding him up from going to his rehab facility. He has no new specific complaints today. Reason For Visit: ACUTE RIGHT MIDDLE CEREBRAL ARTERY CVA Physical Exam Vital Signs: Temp Pulse Resp BP Pulse Ox 98.8 F 64 18 158/73 H 93 12/10/19 07:51 12/10/19 08:00 12/10/19 08:00 12/10/19 08:00 12/10/19 08:45 Intake & Output 12/09/19 12/10/19 12/11/19 06:59 06:59 06:59 Intake Total 1982 814 Output Total 1400 1400 Balance 582 -586 Weight 120.8 kg 120.2 kg General appearance: PRESENT: no acute distress, well-developed, well-nourished Head exam: PRESENT: atraumatic, normocephalic Eye exam: PRESENT: conjunctiva pink Mouth exam: PRESENT: moist Respiratory exam: PRESENT: clear to auscultation elodia. ABSENT: rales, rhonchi, wheezes Cardiovascular exam: PRESENT: RRR. ABSENT: diastolic murmur, rubs, systolic murmur GI/Abdominal exam: PRESENT: normal bowel sounds, soft. ABSENT: distended, guarding, mass, organolmegaly, rebound, tenderness Neurological exam: PRESENT: alert, awake, CN II-XII grossly intact - Unchanged left-sided deficits. ABSENT: motor sensory deficit Psychiatric exam: PRESENT: appropriate affect, normal mood - Lab Skin exam: PRESENT: dry, intact, warm Results Laboratory Results: 12/09/19 05:47 12/09/19 05:47 12/02/19 12/02/19 12/03/19 19:52 19:52 05:36 Creatine Kinase 1586 H CK-MB (CK-2) 9.25 H Troponin I 0.043 0.026 12/03/19 12/03/19 12/04/19 12:13 18:17 04:11 Creatine Kinase 1040 H CK-MB (CK-2) Troponin I 0.018 0.019 12/05/19 12/06/19 12/08/19 05:28 04:13 04:42 Creatine Kinase 600 H 300 H 123 CK-MB (CK-2) Troponin I Impressions: Brain MRI with MRA 12/02/19 00:00 IMPRESSION: Limited examination demonstrating probable occlusion of the right middle cerebral artery at the mid M1 segment. Head MRI 12/02/19 00:00 IMPRESSION: Multiple areas of patchy ischemia/infarction in the distribution of the right middle cerebral artery as well as in the watershed distribution between the right MCA and SHOE TREER. Findings are consistent with acute stroke. Chest X-Ray 12/02/19 19:57 IMPRESSION: Mild cardiac enlargement No evidence of acute process Head CT 12/02/19 19:57 IMPRESSION: Evolving infarct in the right basal ganglion with possible other area in the right medial temporal lobe. No hemorrhage. If clinically indicated this could be further assessed with brain MRI with diffusion-weighted imaging. Carotid Doppler Study 12/02/19 21:34 IMPRESSION: 1. Irregular heart rate throughout the examination. 2. Less than 50% stenosis of the internal carotid arteries bilaterally with minimal plaque seen bilaterally. Modified Barium Swallow 12/05/19 00:01 IMPRESSION: LARYNGEAL PENETRATION WITHOUT ASPIRATION. PLEASE SEE SPEECH PATHOLOGIST REPORT FOR OTHER FINDINGS AND RECOMMENDATIONS. Assessment and Plan - Diagnosis (1) Acute ischemic right middle cerebral artery (MCA) stroke Is this a current diagnosis for this admission?: Yes Plan: Not a TPA candidate, last seen normal greater than 24 hours prior to admission; left upper and lower extremity paralysis with severe dysarthria and somnolence Echocardiogram CT head showed evolving right sided stroke Carotid PVL showed mild disease bilaterally ICA MRA/MRI brain showed probable occlusion of right MCA at the mid M1 segment Aspirin, statin PT/ST/OT Out of the window for permissive hypertension, okay to treat blood pressure with goal 120/80 Poor prognosis overall given large size of occlusion -ST: MBS done, ok for pureed diet with thin liquids -Needs SNF, family in agreement 12/07/2019 Still with dense left hemiplegia. He continues to work with PT, speech and OT. Referrals to senior care facility are being made. 12/08/2019 Continue to work with PT/OT and speech awaiting senior care facility placement 12/09/2019 Blood pressure not yet at goal, increasing medication regimen Waiting on approval 12/10/2019 Coronavirus testing is still pending and we still need prior authorization from [employer] to get him to rehab (2) Sepsis Is this a current diagnosis for this admission?: Yes (3) Bacteremia Is this a current diagnosis for this admission?: Yes (4) Rhabdomyolysis Qualifiers: Rhabdomyolysis type: non-traumatic Qualified Code(s): M62.82 - Rhabdomyolysis Is this a current diagnosis for this admission?: Yes (5) Elevated CPK Is this a current diagnosis for this admission?: Yes (6) Elevated troponin I level Is this a current diagnosis for this admission?: Yes (7) Hypertension Qualifiers: Hypertension type: essential hypertension Qualified Code(s): I10 - Essential (primary) hypertension Is this a current diagnosis for this admission?: Yes Plan: 12/07/2019 His blood pressures are still high. He is on the calcium channel mark nisoldipine at home. I will substitute nifedipine to try and improve his blood pressure. Continue to monitor closely on telemetry and with vital signs. 12/08/2019 With the addition of nifedipine the blood pressures have decreased. They must be mindful not to let them decrease too much. Systolic blood pressure approximately 120-130 would be acceptable. If his blood pressure stays low we may need to make a change such as decreasing the lisinopril. 12/10/2019 Blood pressure still not at goal, added chlorthalidone (8) Left hemiplegia Is this a current diagnosis for this admission?: Yes (9) Sleep apnea in adult Is this a current diagnosis for this admission?: Yes (10) Stroke Qualifiers: CVA mechanism: thrombosis Precerebral and cerebral artery: middle cerebral artery Laterality of affected vessel: right Qualified Code(s): I63.311 - Cerebral infarction due to thrombosis of right middle cerebral artery Is this a current diagnosis for this admission?: Yes (11) Dennis-neglect of left side Is this a current diagnosis for this admission?: Yes - Plan Summary Summary: Patient is admitted to [facility] per stroke protocol were he will receive routine supportive and symptomatic cares. Patient will receive care as per the stroke protocol including a carotid Doppler study. Ativan 1 mg IV every 4 hours will be used as needed to relieve the patient's anxiety or restlessness. The stroke team will be consulted as usual per stroke protocol. Patient's home medications will be restarted as appropriate once his medical reconciliation can be completed. Discharge planning will be involved in aiding the placement of the patient in post hospital rehabilitation. CBCs, metabolic profiles, magnesium levels, troponin I and CPK levels will be will be followed as appropriate. Patient will be n.p.o. initially until he has been evaluated by the speech therapist. 12/08/2019 As the patient is awaiting senior care facility placement he will have his Covid-19 screening test. - Time Time Spent with patient: 15-24 minutes Medications reviewed and adjusted accordingly: Yes Anticipated discharge: SNF Within: within 36 hours - Inpatient Certification Medical Necessity: Significant Comorbidiites Make Outpatient Treatment Too Risky, Need Close Monitoring Due to Risk of Patient Decompensation, Risk of Complication if Not Cared For in Hospital, Risk of Diagnosis Which Will Require Inpatient Eval/Care/Monitoring
--- NOTE | 2019-12-10 12:17 | PDOC DISCHARGE SUMMARY ---
Impression - Admit/DC Date/PCP Admission Date/Primary Care Provider: 12/03/19 00:26 DOE DILLARD MD Discharge Date: 12/10/19 - Discharge Diagnosis (1) Acute ischemic right middle cerebral artery (MCA) stroke Is this a current diagnosis for this admission?: Yes (2) Sepsis Is this a current diagnosis for this admission?: Yes (3) Bacteremia Is this a current diagnosis for this admission?: Yes (4) Rhabdomyolysis Is this a current diagnosis for this admission?: Yes (5) Elevated CPK Is this a current diagnosis for this admission?: Yes (6) Elevated troponin I level Is this a current diagnosis for this admission?: Yes (7) Hypertension Is this a current diagnosis for this admission?: Yes (8) Left hemiplegia Is this a current diagnosis for this admission?: Yes (9) Sleep apnea in adult Is this a current diagnosis for this admission?: Yes (10) Stroke Is this a current diagnosis for this admission?: Yes (11) Dennis-neglect of left side Is this a current diagnosis for this admission?: Yes - Assessment Summary: Patient is admitted to [facility] per stroke protocol were he will receive routine supportive and symptomatic cares. Patient will receive care as per the stroke protocol including a carotid Doppler study. Ativan 1 mg IV every 4 hours will be used as needed to relieve the patient's anxiety or restlessness. The stroke team will be consulted as usual per stroke protocol. Patient's home medications will be restarted as appropriate once his medical reconciliation can be completed. Discharge planning will be involved in aiding the placement of the patient in post hospital rehabilitation. CBCs, metabolic profiles, magnesium levels, troponin I and CPK levels will be will be followed as appropriate. Patient will be n.p.o. initially until he has been evaluated by the speech therapist. 12/08/2019 As the patient is awaiting senior living facility placement he will have his Covid-19 screening test. - Additional Information Resuscitation Status: Full Code Discharge Diet: Cardiac Discharge Activity: Activity As Tolerated Referrals: DOE DILLARD MD [Primary Care Provider] - Follow up as needed Prescriptions: Aspirin [Aspirin 81 mg Chewable Tablet] 81 mg PO DAILY #1 pkg Home Medications: Atorvastatin Calcium [Lipitor 80 mg Tablet] 80 mg PO QHS 10/19/11 Lisinopril [Prinivil 20 mg Tablet] 20 mg PO DAILY 10/19/11 Metoprolol Succinate [Toprol Xl 50 mg Tab.sr] 50 mg PO DAILY 10/19/11 [place]-3 Acid Ethyl Esters [Lovaza 1 gm Capsule] 1 gm PO DAILY 10/19/11 Aspirin [Aspirin 81 mg Chewable Tablet] 81 mg PO DAILY #1 pkg 12/10/19 Chlorthalidone [Hygroton 25 mg Tablet] 12.5 mg PO DAILY tablet 12/10/19 Nifedipine [Procardia XL 30 mg Tablet] 60 mg PO DAILY tab.er.24 12/10/19 Silver Sulfadiazine [Silvadene 1% Cream 400 gm] 1 applic TP Q12 jar 12/10/19 History of Present Illiness History of Present Illness: Per H&P: "STORM GAINES is a 59 year old male who presented to the emergency room with left-sided weakness of uncertain duration. The patient lives alone, but was found by family members lying on his floor in a prone position in a pool of urine and fecal matter. The family members last saw him in his usual state of wellbeing 2 days prior to discovering him today. The patient is unable to speak and cannot provide meaningful historical input into his medical record. No family members noted he had severely slurred speech when he attempted to speak and seemed to be unable to move his left side. Family members say he denies pain but complains that, "it is hard to see". In the emergency room patient was found to be severely dysarthric and was noted to have a right middle cerebral artery occlusion on his MRI. Patient was subsequently admitted to hospital for further evaluation and treatment." Hospital Course Hospital Course: Patient managed for a large right MCA stroke with severe left-sided deficits, worked with PT/OT/ST and made some progress but needs extensive rehab after discharge. Patient also had a left upper abdomen superficial skin infection which she developed from laying on his abdomen after his stroke at home. IV antibiotics were given for several days and infection resolved. Blood cultures grew Proteus and coag negative staph in 1/2 bottles, possible contaminant. Antibiotics course completed prior to discharge. (1) Acute ischemic right middle cerebral artery (MCA) stroke Is this a current diagnosis for this admission?: Yes Plan: Not a TPA candidate, last seen normal greater than 24 hours prior to admission; left upper and lower extremity paralysis with severe dysarthria and somnolence Echocardiogram CT head showed evolving right sided stroke Carotid PVL showed mild disease bilaterally ICA MRA/MRI brain showed probable occlusion of right MCA at the mid M1 segment Aspirin, statin PT/ST/OT Out of the window for permissive hypertension, okay to treat blood pressure with goal 120/80 Poor prognosis overall given large size of occlusion -ST: MBS done, ok for pureed diet with thin liquids -Needs SNF, family in agreement 12/07/2019 Still with dense left hemiplegia. He continues to work with PT, speech and OT. Referrals to senior living facility are being made. 12/08/2019 Continue to work with PT/OT and speech awaiting senior living facility placement 12/09/2019 Blood pressure not yet at goal, increasing medication regimen Waiting on approval 12/10/2019 Coronavirus testing is negative (2) Sepsis Is this a current diagnosis for this admission?: Yes Source of skin infection Resolved (3) Superficial Left Abdomen Skin Infection Is this a current diagnosis for this admission?: Yes -Resolved; abx completed (4) Rhabdomyolysis Qualifiers: Rhabdomyolysis type: non-traumatic Qualified Code(s): M62.82 - Rhabdomyolysis Is this a current diagnosis for this admission?: Yes (5) Elevated CPK Is this a current diagnosis for this admission?: Yes (6) Elevated troponin I level Is this a current diagnosis for this admission?: Yes (7) Hypertension Qualifiers: Hypertension type: essential hypertension Qualified Code(s): I10 - Essential (primary) hypertension Is this a current diagnosis for this admission?: Yes Plan: 12/07/2019 His blood pressures are still high. He is on the calcium channel mark nisoldipine at home. I will substitute nifedipine to try and improve his blood pressure. Continue to monitor closely on telemetry and with vital signs. 12/08/2019 With the addition of nifedipine the blood pressures have decreased. They must be mindful not to let them decrease too much. Systolic blood pressure approximately 120-130 would be acceptable. If his blood pressure stays low we may need to make a change such as decreasing the lisinopril. 12/10/2019 Blood pressure getting closer to goal, added chlorthalidone (8) Left hemiplegia Is this a current diagnosis for this admission?: Yes (9) Sleep apnea in adult Is this a current diagnosis for this admission?: Yes CPAP nightly (10) Stroke Qualifiers: CVA mechanism: thrombosis Precerebral and cerebral artery: middle cerebral artery Laterality of affected vessel: right Qualified Code(s): I63.311 - Cerebral infarction due to thrombosis of right middle cerebral artery Is this a current diagnosis for this admission?: Yes (11) Dennis-neglect of left side Is this a current diagnosis for this admission?: Yes Physical Exam Vital Signs: Temp Pulse Resp BP Pulse Ox 98.8 F 64 18 158/73 H 93 12/10/19 07:51 12/10/19 08:00 12/10/19 08:00 12/10/19 08:00 12/10/19 08:45 Intake & Output 12/09/19 12/10/19 12/11/19 06:59 06:59 06:59 Intake Total 1982 814 Output Total 1400 1400 Balance 582 -586 Weight 120.8 kg 120.2 kg General appearance: PRESENT: no acute distress, morbidly obese, well-developed, well-nourished Head exam: PRESENT: atraumatic, normocephalic Eye exam: PRESENT: conjunctiva pink Mouth exam: PRESENT: moist Respiratory exam: PRESENT: clear to auscultation elodia. ABSENT: rales, rhonchi, wheezes GI/Abdominal exam: PRESENT: normal bowel sounds, soft. ABSENT: distended, guarding, mass, organolmegaly, rebound, tenderness Neurological exam: PRESENT: alert, awake, oriented to person, motor sensory deficit - Left face/upper extremity/lower extremity severe weakness. ABSENT: CN II-XII grossly intact Psychiatric exam: PRESENT: appropriate affect, normal mood Skin exam: PRESENT: dry, warm Results Laboratory Results: WBC 6.6 10^3/uL (4.0-10.5) 12/09/19 05:47 RBC 3.81 10^6/uL (4.35-5.55) L 12/09/19 05:47 Hgb 13.4 g/dL (13.5-17.0) L 12/09/19 05:47 Hct 38.4 % (37.9-51.0) 12/09/19 05:47 MCV 101 fl (80-97) H 12/09/19 05:47 MCH 35.3 pg (27.0-33.4) H 12/09/19 05:47 MCHC 35.0 g/dL (32.0-36.0) 12/09/19 05:47 RDW 12.7 % (11.5-14.0) 12/09/19 05:47 Plt Count 148 10^3/uL (150-450) L 12/09/19 05:47 Lymph % (Auto) Not Reportable 12/04/19 04:11 [place] % (Auto) Not Reportable 12/04/19 04:11 Eos % (Auto) Not Reportable 12/04/19 04:11 Baso % (Auto) Not Reportable 12/04/19 04:11 Absolute Neuts (auto) Not Reportable 12/04/19 04:11 Absolute Lymphs (auto) Not Reportable 12/04/19 04:11 Absolute Monos (auto) Not Reportable 12/04/19 04:11 Absolute Eos (auto) Not Reportable 12/04/19 04:11 Absolute Basos (auto) Not Reportable 12/04/19 04:11 Total Counted 100 12/04/19 04:11 Seg Neutrophils % Not Reportable 12/04/19 04:11 Seg Neuts % (Manual) 76 % (42-78) 12/04/19 04:11 Lymphocytes % (Manual) 13 % (13-45) 12/04/19 04:11 Monocytes % (Manual) 8 % (3-13) 12/04/19 04:11 Eosinophils % (Manual) 3 % (0-6) 12/04/19 04:11 Basophils % (Manual) 0 % (0-2) 12/04/19 04:11 Abs Neuts (Manual) 6.9 10^3/uL (1.7-8.2) 12/04/19 04:11 Abs Lymphs (Manual) 1.2 10^3/uL (0.5-4.7) 12/04/19 04:11 Abs Monocytes (Manual) 0.7 10^3/uL (0.1-1.4) 12/04/19 04:11 Absolute Eos (Manual) 0.3 10^3/uL (0.0-0.6) 12/04/19 04:11 Abs Basophils (Manual) 0.0 10^3/uL (0.0-0.2) 12/04/19 04:11 Platelet Comment ADEQUATE 12/04/19 04:11 Macrocytosis 2+ 04/16/20 04:11 Sodium 137.8 mmol/L (137-145) 12/09/19 05:47 Potassium 4.2 mmol/L (3.6-5.0) 12/09/19 05:47 Chloride 106 mmol/L (98-107) 12/09/19 05:47 Carbon Dioxide 26 mmol/L (22-30) 12/09/19 05:47 Anion Gap 6 (5-19) 12/09/19 05:47 BUN 22 mg/dL (7-20) H 12/09/19 05:47 Creatinine 0.88 mg/dL (0.52-1.25) 12/09/19 05:47 Est GFR ( Amer) > 60 (>60) 12/09/19 05:47 Est GFR (MDRD) Non-Af > 60 (>60) 12/09/19 05:47 Glucose 109 mg/dL (75-110) 12/09/19 05:47 POC Glucose 96 mg/dL (70-110) 12/06/19 21:07 Hemoglobin A1c % 4.8 % (4.7-6.0) 12/03/19 18:17 Uric Acid 3.9 mg/dL (3.5-8.5) 12/08/19 04:42 Calcium 8.3 mg/dL (8.4-10.2) L 12/09/19 05:47 Magnesium 2.4 mg/dL (1.6-2.3) H 12/09/19 05:47 Total Bilirubin 3.6 mg/dL (0.2-1.3) H 12/02/19 19:52 Direct Bilirubin 1.5 mg/dL (0.0-0.4) H 12/02/19 19:52 Neonat Total Bilirubin Not Reportable 12/02/19 19:52 Neonat Direct Bilirubin Not Reportable 12/02/19 19:52 Neonat Indirect Bili Not Reportable 12/02/19 19:52 AST 75 U/L (17-59) H 12/02/19 19:52 ALT 46 U/L (<50) 12/02/19 19:52 Alkaline Phosphatase 83 U/L (38-126) 12/02/19 19:52 Creatine Kinase 123 U/L (55-170) 12/08/19 04:42 CK-MB (CK-2) 9.25 ng/mL (<4.55) H 12/02/19 19:52 Troponin I 0.019 ng/mL 12/03/19 18:17 Total Protein 7.8 g/dL (6.3-8.2) 12/02/19 19:52 Albumin 4.0 g/dL (3.5-5.0) 12/02/19 19:52 Triglycerides 149 mg/dL (<150) 12/04/19 04:11 Cholesterol 263.71 mg/dL (0-200) H 12/04/19 04:11 LDL Cholesterol Direct 184 mg/dL (<100) H 12/04/19 04:11 VLDL Cholesterol 30.0 mg/dL (10-31) 12/04/19 04:11 HDL Cholesterol 40 mg/dL (>40) 12/04/19 04:11 TSH 2.99 uIU/mL (0.47-4.68) 12/04/19 04:11 Urine Color LUANA 12/02/19 23:36 Urine Appearance SLIGHTLY-CLOUDY 12/02/19 23:36 Urine pH 5.0 (5.0-9.0) 12/02/19 23:36 Ur Specific Gallagher 1.028 12/02/19 23:36 Urine Protein 100 mg/dL (NEGATIVE) H 12/02/19 23:36 Urine Glucose (UA) NEGATIVE mg/dL (NEGATIVE) 12/02/19 23:36 Urine Ketones NEGATIVE mg/dL (NEGATIVE) 12/02/19 23:36 Urine Blood MODERATE (NEGATIVE) H 12/02/19 23:36 Urine Nitrite NEGATIVE (NEGATIVE) 12/02/19 23:36 Urine Bilirubin NEGATIVE (NEGATIVE) 12/02/19 23:36 Urine Urobilinogen 4.0 mg/dL (<2.0) H 12/02/19 23:36 Ur Leukocyte Esterase NEGATIVE (NEGATIVE) 12/02/19 23:36 Urine WBC (Auto) 2 /HPF 12/02/19 23:36 Urine RBC (Auto) 4 /HPF 12/02/19 23:36 U Hyaline Cast (Auto) 1 /LPF 12/02/19 23:36 Urine Mucus (Auto) MOD /LPF 12/02/19 23:36 Urine Ascorbic Acid NEGATIVE (NEGATIVE) 12/02/19 23:36 Time Trough Drawn 0551 12/07/19 05:51 Vancomycin Trough 10.7 ug/mL (5.0-20.0) 12/07/19 05:51 COVID-19 Source NASOPHARYNGEAL 12/08/19 18:24 COVID-19 (ALLA) NOT DETECTED 12/08/19 18:24 12/02/19 12/03/19 12/03/19 19:52 05:36 12:13 CK-MB (CK-2) 9.25 H Troponin I 0.043 0.026 0.018 12/03/19 18:17 CK-MB (CK-2) Troponin I 0.019 Impressions: Brain MRI with MRA 12/02/19 00:00 IMPRESSION: Limited examination demonstrating probable occlusion of the right middle cerebral artery at the mid M1 segment. Head MRI 12/02/19 00:00 IMPRESSION: Multiple areas of patchy ischemia/infarction in the distribution of the right middle cerebral artery as well as in the watershed distribution between the right MCA and HAND STRIPER. Findings are consistent with acute stroke. Chest X-Ray 12/02/19 19:57 IMPRESSION: Mild cardiac enlargement No evidence of acute process Head CT 12/02/19 19:57 IMPRESSION: Evolving infarct in the right basal ganglion with possible other area in the right medial temporal lobe. No hemorrhage. If clinically indicated this could be further assessed with brain MRI with diffusion-weighted imaging. Carotid Doppler Study 12/02/19 21:34 IMPRESSION: 1. Irregular heart rate throughout the examination. 2. Less than 50% stenosis of the internal carotid arteries bilaterally with minimal plaque seen bilaterally. Modified Barium Swallow 12/05/19 00:01 IMPRESSION: LARYNGEAL PENETRATION WITHOUT ASPIRATION. PLEASE SEE SPEECH PATHOLOGIST REPORT FOR OTHER FINDINGS AND RECOMMENDATIONS. Plan Plan of Treatment: Follow-up with PCP Follow-up with neurology Time Spent: Greater than 30 Minutes Stroke Is this a Stroke Patient?: Yes Stroke Pt being discharged on Anti-thrombolytic therapy?: Yes Stroke Pt being discharged on Anti-coagulation therapy?: No Reason(s) for not prescribing Anti-coagulation therapy:: Not indicated Stroke Pt being discharged on Statins?: Yes Acute Heart Failure - Is this a Heart Failure Patient?: Yes Documentation of LVEF assessment?: Yes LVEF < 40%?: No- if no continue to question #3 3. Anticoagulant therapy for permanect/persistent/paraoxysmal Afib or Aflutter: N/A Follow-up Appointment scheduled within 7 days?: Yes
[2019-12-10 16:58] VITALS: BP 124/80
== END 2019-12-10 17:02 | DRG 65 ==
LOC: ER 19:46 → EH 12-03 00:26 → 3W 12-03 01:45
PROVIDERS: ADMIT Emergency Medicine; ATTEND Internal Medicine
DX: I63.511 Cerebral infarction due to unspecified occlusion or stenosis of right middle cerebral artery (principal); M62.82 Rhabdomyolysis; G81.94 Hemiplegia, unspecified affecting left nondominant side; R78.81 Bacteremia; I10 Essential (primary) hypertension; G47.30 Sleep apnea, unspecified; Z60.2 Problems related to living alone; R47.81 Slurred speech; R47.1 Dysarthria and anarthria; I25.10 Atherosclerotic heart disease of native coronary artery without angina pectoris; Z96.649 Presence of unspecified artificial hip joint; R79.89 Other specified abnormal findings of blood chemistry; B95.61 Methicillin susceptible Staphylococcus aureus infection as the cause of diseases classified elsewhere; B96.4 Proteus (mirabilis) (morganii) as the cause of diseases classified elsewhere; R13.10 Dysphagia, unspecified; F41.9 Anxiety disorder, unspecified; Z79.899 Other long term (current) drug therapy; S30.811A Abrasion of abdominal wall, initial encounter; L08.9 Local infection of the skin and subcutaneous tissue, unspecified; X58.XXXA Exposure to other specified factors, initial encounter; Z82.49 Family history of ischemic heart disease and other diseases of the circulatory system; Y92.009 Unspecified place in unspecified non-institutional (private) residence as the place of occurrence of the external cause; Z86.010 Personal history of colon polyps; Z03.818 Encounter for observation for suspected exposure to other biological agents ruled out
CPT/HCPCS: 36415; 70450; 70544; 70551; 71045; 74230; 80048; 80053; 80061; 80202; 81001; 82550; 82553; 82962; 83036; 83735; 84443; 84484; 84550; 85025; 85027; 87040; 87077; 87150; 87186; 87635; 93005; 93010; 93306; 93880; 94660; 96360; 99291; J0360; J0692; J1644; J3370; J3490; J7030; J7060; J7121; S0028